=== PATIENT | female | born 1990 | race African-American/Black ===

== ENCOUNTER 2016-07-18 08:00 | Emergency (ER) | payer SELFPAY ==
[2016-07-18 08:35] LABS: ABSOLUTE EOSINOPHILS # (AUTO) 0.2 10^3/uL (0.0-0.6); ABSOLUTE LYMPHOCYTES (AUTO) 1.6 10^3/uL (0.5-4.7); ABSOLUTE MONOCYTES (AUTO) 0.8 10^3/uL (0.1-1.4); ABSOLUTE NEUT (AUTO) 6.6 10^3/uL (1.7-8.2); BASOPHILS % (AUTO) 0.3 % (0-2); EOSINOPHILS % (AUTO) 1.9 % (0-6); HEMATOCRIT 32.4 % (36.0-47.0); HEMOGLOBIN 10.9 g/dL (12.0-15.5); HGB HCT DIFFERENCE 0.3; LYMPHOCYTES % (AUTO) 17.3 % (13-45); MEAN CORPUSCULAR HEMOGLOBIN 29.1 pg (27.0-33.4); MEAN CORPUSCULAR HGB CONC 33.6 g/dL (32.0-36.0); MEAN CORPUSCULAR VOLUME 87 fl (80-97); MONOCYTES % (AUTO) 8.3 % (3-13); RED BLOOD COUNT 3.75 10^6/uL (3.72-5.28); RED CELL DISTRIBUTION WIDTH 16.2 % (11.5-14.0); SEGMENTED NEUTROPHILS % (AUTO) 72.2 % (42-78); WHITE BLOOD COUNT 9.2 10^3/uL (4.0-10.5)
[2016-07-18 08:39] LABS: ALANINE AMINOTRANSFERASE 31 U/L (9-52); ALBUMIN 3.2 g/dL (3.5-5.0); ALKALINE PHOSPHATASE 63 U/L (38-126); ANION GAP 11 (5-19); ASPARTATE AMINO TRANSFERASE 17 U/L (14-36); BILIRUBIN,TOTAL 0.4 mg/dL (0.2-1.3); BLOOD UREA NITROGEN 10 mg/dL (7-20); CALCIUM 9.3 mg/dL (8.4-10.2); CARBON DIOXIDE 21 mmol/L (22-30); CHLORIDE 105 mmol/L (98-107); CREATININE RESULT 0.47 mg/dL (0.52-1.25); GLUCOSE 78 mg/dL (75-110); POTASSIUM 4.3 mmol/L (3.6-5.0); SODIUM 137.4 mmol/L (137-145); TOTAL PROTEIN 6.7 g/dL (6.3-8.2)
[2016-07-18] MEDS ORDERED: ACETAMINOPHEN 325 MG TABLET PO ONE (09:34)
[2016-07-18 09:53] LABS: APPEARANCE,URINE CLOUDY; BILIRUBIN,URINE NEGATIVE (NEGATIVE); GLUCOSE, URINE NEGATIVE (NEGATIVE); KETONES,URINE NEGATIVE (NEGATIVE); LEUKOCYTE ESTERASE,URINE LARGE (NEGATIVE); NITRITE,URINE NEGATIVE (NEGATIVE); PROTEIN,URINE 100 mg/dL (NEGATIVE); URINE SPECIFIC GRAVITY 1.019; UROBILINOGEN,URINE NEGATIVE mg/dL (<2.0)
[2016-07-18 11:39] VITALS: BP 97/57
--- NOTE | 2016-07-18 12:16 | ER Document Report ---
ED GI/ - General Chief Complaint: Abdominal Pain Stated Complaint: ABDOMINAL PAIN Mode of Arrival: Ambulatory Information source: Patient Notes: 26-year-old female presents to the emergency department complaining of intermittently persistent mid lower abdomen/suprapubic pain over the last 4 days. Patient reports associated dysuria and possible vaginal versus post-void bleeding. Reports pink tinge on toilet paper after urination. Denies bleeding without urination. Reports is approximately 13 weeks , LMP 04/18/16. SA1. States was seen in this emergency department 3 days ago but symptoms are persistent. Denies fever, vaginal discharge, nausea or vomiting, chest pain or shortness of breath. TRAVEL OUTSIDE OF THE [place] IN LAST 30 DAYS: No - HPI Timing/Duration: Intermittent, Persistent Quality of pain: Burning, Sharp Severity at maximum: Moderate Severity in ED: Mild, Moderate Pain Level: 3 Context: Vaginal bleeding (Compared to normal period): Spotting ABO type: 0 Rh factor: + OB ultrasound done: Yes vitamins taken: Yes Similar symptoms previously: Yes Recently seen / treated by doctor: Yes - Related Data Allergies/Adverse Reactions: No Known Allergies Allergy (Verified 05/27/16 18:20) Past Medical History - General Information source: Patient, Emergency Med Personnel - Social History Smoking Status: Never Smoker Frequency of alcohol use: None Drug Abuse: None Lives with: Family Family History: Reviewed & Not Pertinent Patient has suicidal ideation: No Patient has homicidal ideation: No - Medical History Medical History: Negative Pulmonary Medical History: Denies: Hx Asthma Past Surgical History: Reports: Hx Section - Immunizations Immunizations up to date: Yes Hx Diphtheria, Pertussis, Tetanus Vaccination: Yes Review of Systems - Review of Systems Constitutional: No symptoms reported EENT: No symptoms reported Cardiovascular: No symptoms reported Respiratory: No symptoms reported Gastrointestinal: No symptoms reported Genitourinary: See HPI Female Genitourinary: See HPI Musculoskeletal: No symptoms reported Skin: No symptoms reported Hematologic/Lymphatic: No symptoms reported Neurological/Psychological: No symptoms reported -: Yes All other systems reviewed and negative Physical Exam - Vital signs Vitals: Temp Pulse Resp BP Pulse Ox 99.4 F 93 16 113/80 100 07/18/16 08:08 07/18/16 08:08 07/18/16 08:08 07/18/16 08:08 07/18/16 08:08 Interpretation: Normal - General General appearance: Appears well, Alert In distress: None - HEENT Head: Normocephalic, Atraumatic Eyes: Normal Pupils: PERRL - Respiratory Respiratory status: No respiratory distress Chest status: Nontender Breath sounds: Normal Chest palpation: Normal - Cardiovascular Rhythm: Regular Heart sounds: Normal auscultation Murmur: No Pulses: Normal: Radial, Posterior tibial, Dorsalis pedis Normal capillary refill: Yes - Abdominal Inspection: Normal Distension: No distension Bowel sounds: Normal Tenderness: Tender - Mild tenderness with palpation to mid lower abdomen/ suprapubic area.. No: Nontender, McBurney's point, Flor's sign, Guarding, Rebound, Other Organomegaly: No organomegaly - Genitourinary Notes: Deferred per patient - Back Back: Normal, Nontender. No: Tender, Deformity/step-off, CVA tenderness, Vertebra tenderness, Scars, Scoliosis, Wounds, Other - Extremities General upper extremity: Normal inspection, Nontender, Normal color, Normal ROM , Normal strength, Normal temperature. No: Tender, Edema General lower extremity: Normal inspection, Nontender, Normal color, Normal ROM , Normal strength, Normal temperature, Normal weight bearing. No: Tender, Edema , Bobby's sign - Neurological Neuro grossly intact: Yes Cognition: Normal Orientation: AAOx4 [place] Coma Scale Eye Opening: Spontaneous Carri Coma Scale Verbal: Oriented [place] Coma Scale Motor: Obeys Commands Carri Coma Scale Total: 15 Speech: Normal Motor strength normal: LUE, RUE, LLE, RLE Sensory: Normal - Psychological Associated symptoms: Normal affect, Normal mood - Skin Skin Temperature: Warm Skin Moisture: Dry Skin Color: Normal Skin Turgor: Elastic Course - Re-evaluation Re-evalutation: 07/18/16 12:17 Patient hemodynamically stable, in no distress, afebrile, nontoxic, and appears well-hydrated. UA suggestive of UTI, urine culture obtained. Ultrasound unremarkable. Quantitative b-HCG slight decreased. Discussed patient presentation and findings with HUMAN RESOURCES DESIGNATE on-call who recommends treatment for UTI and routine follow-up in [facility] clinic. Home care, follow-up, and ED return precautions discussed with patient who verbalized understanding and agrees with plan. - Vital Signs Vital signs: Temp Pulse Resp BP Pulse Ox 98.6 F 74 18 97/57 L 100 07/18/16 11:35 07/18/16 11:35 07/18/16 11:35 07/18/16 11:35 07/18/16 11:35 - Laboratory Result Diagrams: 07/18/16 08:20 07/18/16 08:20 Laboratory results interpreted by me: 07/18/16 07/18/16 07/18/16 08:20 08:20 09:30 Hgb 10.9 L Hct 32.4 L RDW 16.2 H Carbon Dioxide 21 L Creatinine 0.47 L Albumin 3.2 L Beta HCG, Quant 17305.00 H Urine Protein 100 H Urine Blood MODERATE H Ur Leukocyte Esterase LARGE H - Diagnostic Test Radiology reviewed: Image reviewed, Reports reviewed Discharge - Discharge Clinical Impression: UTI in Condition: Stable Disposition: HOME, SELF-CARE Instructions: Urinary Tract Infection ([facility]), Cephalexin ([facility]), Urinary Anesthetic Agent ([facility]), Acetaminophen, Abdominal Pain ([facility]) Additional Instructions: Your ultrasound today not show any abnormal findings. A culture of your urine was obtained. If bacterial growth is noted that requires a change in your prescribed antibiotic regimen, you will be contacted within 2 days with instructions on treatment. Drink plenty of fluids at least 2 -3 liters of water per day. Follow-up with your primary care provider and HUMAN RESOURCES DESIGNATE this week. Return to the emergency department for any worsening symptoms or concerns. Prescriptions: Cephalexin Monohydrate [Keflex 500 mg Capsule] 500 mg PO Q6H 7 Days Phenazopyridine HCl [Pyridium 200 mg Tablet] 200 mg PO TIDP PRN #15 tablet PRN Reason: Referrals: [facility] [Provider Group] - Follow up tomorrow
== END 2016-07-18 12:35 | disposition home or self-care (01) ==
LOC: ER 08:00
DX: O23.41 Unspecified infection of urinary tract in pregnancy, first trimester (principal); N39.0 Urinary tract infection, site not specified; R10.30 Lower abdominal pain, unspecified; Z3A.13 13 weeks gestation of pregnancy
CPT/HCPCS: 36415; 76801; 80053; 81001; 84702; 85025; 87086; 87088; 87186; 99284

== ENCOUNTER 2016-10-17 21:53 | Outpatient (CLI) | payer MEDICAID ==
[2016-10-17 22:44] LABS: APPEARANCE,URINE SLIGHTLY-CLOUDY; BILIRUBIN,URINE NEGATIVE (NEGATIVE); GLUCOSE, URINE NEGATIVE (NEGATIVE); KETONES,URINE TRACE mg/dL (NEGATIVE); LEUKOCYTE ESTERASE,URINE SMALL (NEGATIVE); NITRITE,URINE NEGATIVE (NEGATIVE); PROTEIN,URINE 100 mg/dL (NEGATIVE); URINE SPECIFIC GRAVITY 1.024; UROBILINOGEN,URINE NEGATIVE mg/dL (<2.0)
[2016-10-17 22:59] LABS: URINE BARBITURATES SCREEN NEGATIVE; URINE METHADONE SCREEN NEGATIVE; URINE OPIATES LOW NEGATIVE; URINE PHENCYCLIDINE SCREEN NEGATIVE
== END 2016-10-17 23:10 | disposition home or self-care (01) ==
LOC: LC 21:53
PROVIDERS: ATTEND Student in an Organized Health Care Education/Training Program
PROC: 4A1HXCZ Monitoring of Products of Conception, Cardiac Rate, External Approach (ICD-10-PCS; principal; 2016-10-17)
DX: O47.02 False labor before 37 completed weeks of gestation, second trimester (principal); Z3A.26 26 weeks gestation of pregnancy
CPT/HCPCS: 76815; 80307; 81001; 82731; 87081

== ENCOUNTER 2016-12-24 15:22 | Outpatient (CLI) | payer MEDICAID ==
[2016-12-24] MEDS ORDERED: RINGERS SOLUTION,LACTATED 1,000 ML IV PRN (16:02)
[2016-12-24] MEDS ORDERED: HYDROXYZINE PAMOATE 50 MG CAPSULE ONE (17:03)
[2016-12-24] MEDS ORDERED: HYDROXYZINE PAMOATE 50 MG CAPSULE PO ONE (17:30)
== END 2016-12-24 17:17 | disposition home or self-care (01) ==
LOC: LC 15:22
PROVIDERS: ATTEND Obstetrics & Gynecology
PROC: 4A1HXCZ Monitoring of Products of Conception, Cardiac Rate, External Approach (ICD-10-PCS; principal; 2016-12-24)
DX: O26.893 Other specified pregnancy related conditions, third trimester (principal); R10.9 Unspecified abdominal pain; Z3A.35 35 weeks gestation of pregnancy
CPT/HCPCS: 59025; J3490

== ENCOUNTER 2017-01-19 05:18 | Inpatient (IN) | payer MEDICAID ==
[2017-01-18 12:09] LABS: ABSOLUTE EOSINOPHILS # (AUTO) 0.1 10^3/uL (0.0-0.6); ABSOLUTE LYMPHOCYTES (AUTO) 1.8 10^3/uL (0.5-4.7); ABSOLUTE MONOCYTES (AUTO) 0.6 10^3/uL (0.1-1.4); ABSOLUTE NEUT (AUTO) 4.7 10^3/uL (1.7-8.2); BASOPHILS % (AUTO) 0.4 % (0-2); EOSINOPHILS % (AUTO) 1.2 % (0-6); HEMATOCRIT 29.2 % (36.0-47.0); HEMOGLOBIN 9.4 g/dL (12.0-15.5); LYMPHOCYTES % (AUTO) 24.9 % (13-45); MEAN CORPUSCULAR HEMOGLOBIN 26.2 pg (27.0-33.4); MEAN CORPUSCULAR VOLUME 82 fl (80-97); MONOCYTES % (AUTO) 8.1 % (3-13); RED BLOOD COUNT 3.57 10^6/uL (3.72-5.28); RED CELL DISTRIBUTION WIDTH 16.1 % (11.5-14.0); SEGMENTED NEUTROPHILS % (AUTO) 65.4 % (42-78); WHITE BLOOD COUNT 7.1 10^3/uL (4.0-10.5)
[2017-01-18 12:20] LABS: APPEARANCE,URINE SLIGHTLY-CLOUDY; BILIRUBIN,URINE NEGATIVE (NEGATIVE); GLUCOSE, URINE NEGATIVE (NEGATIVE); KETONES,URINE TRACE mg/dL (NEGATIVE); LEUKOCYTE ESTERASE,URINE NEGATIVE (NEGATIVE); NITRITE,URINE NEGATIVE (NEGATIVE); PROTEIN,URINE 30 mg/dL (NEGATIVE); URINE SPECIFIC GRAVITY 1.029; UROBILINOGEN,URINE NEGATIVE mg/dL (<2.0)
[2017-01-18 12:29] LABS: URINE BARBITURATES SCREEN NEGATIVE; URINE METHADONE SCREEN NEGATIVE; URINE OPIATES LOW NEGATIVE; URINE PHENCYCLIDINE SCREEN NEGATIVE
[~2017-01-19 05:18] MED LIST: CEFAZOLIN 2 GM/D5W RTU 2 GM/50 ML RTUPB IV PRN; LACTATED RINGERS 1000 ML IV PRN; LIDOCAINE 0.5% INJ-PF (5 MG/ML) 50 ML SDV SUBCUT PRN; RINGERS SOLUTION,LACTATED 1,500 ML IV PRN
--- NOTE | 2017-01-19 07:35 | Non Stress Test Report ---
Non Stress Test Datetime Report Generated by CPN: 01/19/2017 07:35 DEMOGRAPHIC EGA NST: 35.2 INDICATION Indication for Study: Ordered by Provider MONITORING Monitor Explained: Monitor Explained; Test Explained; Patient Verbalized Understanding Time on Monitor: 12/24/2016 15:44 Time off Monitor: 12/24/2016 16:53 NST Duration: 69 NST INTERVENTIONS NST Interventions: None Physician Notified NST: Dr Aldrich BABY A: [id number] BABY A Movement : Present Contraction Frequency : irregular FHR Baseline : 145 Accelerations : 15X15 Accelerations : 15X15 Decelerations : None Variability : Moderate 6-25bpm NST Review: Meets Criteria for Reactive NST NST Review and Verified By : Magda Abbasi RN NST Results: Reactive NST REPORT Report Trigger: Send Report
[2017-01-19] MEDS ORDERED: MIDAZOLAM 2 MG/2 ML INJ ONE ×2 (07:56→09:17)
[2017-01-19] MEDS ORDERED: FENTANYL CITRATE INJ/PF 100 MCG/2 ML AMPUL ONE (07:57)
[2017-01-19] MEDS ORDERED: EPHEDRINE SULFATE INJ 50 MG/1 ML AMPULE ONE (07:57)
[2017-01-19] MEDS ORDERED: OXYTOCIN/NORMAL SALINE 20 UNIT/1,000 ML RTUINJ ONE (07:58)
[2017-01-19] MEDS ORDERED: ACETAMINOPHEN 100 ML IV ONE (07:58)
[2017-01-19] MEDS ORDERED: OXYCODONE-ACETAMINOPHEN 5-325 MG TABLET PO PRN ×3 (08:17→10:21)
[2017-01-19] MEDS ORDERED: PROMETHAZINE HCL INJ 25 MG/1 ML VIAL IV PRN ×3 (08:17→10:21)
[2017-01-19] MEDS ORDERED: FENTANYL CITRATE INJ/PF 100 MCG/2 ML AMPUL IV PRN ×3 (08:17)
[2017-01-19] MEDS ORDERED: DIPHENHYDRAMINE HCL 50 MG/ML VIAL IV PRN (08:17)
[2017-01-19] MEDS ORDERED: MEPERIDINE HCL/PF INJ 25 MG/1 ML DISP.SYRIN IV PRN (08:17)
[2017-01-19] MEDS ORDERED: MORPHINE SULFATE 10 MG/ML INJ IV PRN (08:17)
[2017-01-19] MEDS ORDERED: KETAMINE HCL INJ 500 MG/10 ML VIAL ONE (09:16)
[2017-01-19] MEDS ORDERED: RINGERS SOLUTION,LACTATED 1,000 ML IV PRN (10:21)
[2017-01-19] MEDS ORDERED: MEASLES,MUMPS&RUBELLA VACC/PF 0.5 ML VIAL SUBCUT PRN (10:21)
[2017-01-19] MEDS ORDERED: SIMETHICONE 80 MG TAB.CHEW PO PRN (10:21)
[2017-01-19] MEDS ORDERED: OXYTOCIN/NORMAL SALINE 1,000 ML IV PRN (10:21)
[2017-01-19] MEDS ORDERED: ACETAMINOPHEN 325 MG TABLET PO PRN (10:21)
[2017-01-19] MEDS ORDERED: HYDROMORPHONE HCL INJ/PF 2 MG/ML AMPULE IV PRN (10:21)
[2017-01-19] MEDS ORDERED: ACETAMINOPHEN 100 ML IV PRN (10:21)
[2017-01-19] MEDS ORDERED: DIPH/PERTUSS(ACELL)/TETANUS VAC/PF 0.5 ML SYR (>=10YO) IM PRN (10:21)
[2017-01-19] MEDS ORDERED: MORPHINE SULFATE 10 MG/ML INJ ONE (10:25)
--- NOTE | 2017-01-19 10:28 | Operative Report ---
Operative Report DATE OF SURGERY: 01/19/17 PREOPERATIVE DIAGNOSIS: Scheduled repeat to prevent uterine rupture POSTOPERATIVE DIAGNOSIS: Same OPERATION: Repeat via low transverse uterine incision SURGEON: ELANA MARTIN ANESTHESIA: GA TISSUE REMOVED OR ALTERED: Placenta COMPLICATIONS: None ESTIMATED BLOOD LOSS: 250 cc INTRAOPERATIVE FINDINGS: Normal uterus tubes and ovaries viable female with Apgars of 6 and 9 PROCEDURE: Patient was taken to the OR and placed in supine position after her spinal anesthesia. She was prepared and draped in sterile fashion. Pruitt catheter was placed. The spinal was not working well in general anesthesia was induced. A Low transverse incision was made and carried down the level of the fascia. The fascial incision was made with knife and extended bilaterally with curved Chatman scissors. The fascia was off the rectus muscles using sharp and blunt dissection. The rectus muscles are in the midline. The peritoneum was entered without incident. Bladder blade was placed in uterine segment was identified. A low transverse incision was made creating a bladder flap. Bladder blade was placed low transverse uterine incision was made with the c-safe knife and extended with fingertips. The baby was delivered with some fundal pressure. The assistance of the Kiwi vacuum was used with one pull with pressure in the green and no pop off. Mouth and nose were suctioned free. The cord is doubly clamped and cut. Baby is passed off to the customer service assistant in attendance. The placenta was manually extracted with trailing membranes. The uterus was externalized wrapped in a moist lap sponge. Uterine contents wiped free. Uterus was closed with a running locking layer of 0 chromic suture using the second layer to imbricate the first completing a double layer closure of the uterus. The serosa was closed with a running 2-0 chromic stitch. The pelvis was irrigated and suctioned free of fluid the uterus was replaced in the abdomen. The bladder was intact. The abdominal wall peritoneum was closed with running 2-0 chromic stitch. Fascia was closed with a running 0 Vicryl in 2 segments. Tatiana's layer was brought together with 0 plain gut stitch and the skin was closed with running subcuticular 4-0 undyed Vicryl stitch. The wound was dressed mother and baby did well.
[2017-01-19] MEDS ORDERED: KETOROLAC TROMETHAMINE INJ/PF 30 MG/1 ML SDV ONE (10:51)
[2017-01-19] MEDS ORDERED: KETOROLAC TROMETHAMINE INJ/PF 30 MG/1 ML SDV IV ONE (11:00)
[2017-01-19] MEDS ORDERED: SUCCINYLCHOLINE CHLORIDE INJ 200 MG/10 ML VIAL ONE (13:18)
[2017-01-19] MEDS ORDERED: LIDOCAINE 2% INJ-PF (20 MG/ML) 10 ML AMPUL ONE (13:18)
[2017-01-19] MEDS ORDERED: ONDANSETRON HCL INJ/PF 4 MG/2 ML SDV ONE (13:18)
[2017-01-19] MEDS: KETOROLAC TROMETHAMINE INJ/PF 30 MG/1 ML SDV IV SCH (18:26)
[2017-01-19] MEDS: DOCUSATE SODIUM 100 MG CAPSULE PO SCH (18:27)
[2017-01-19] MEDS: OXYCODONE-ACETAMINOPHEN 5-325 MG TABLET PO PRN (21:30)
[2017-01-20] MEDS: KETOROLAC TROMETHAMINE INJ/PF 30 MG/1 ML SDV IV SCH (02:06)
[2017-01-20] MEDS: OXYCODONE-ACETAMINOPHEN 5-325 MG TABLET PO PRN ×3 (02:07→15:30)
[2017-01-20] MEDS: IBUPROFEN 800 MG TABLET PO SCH ×4 (05:50→23:01)
[2017-01-20 06:54] LABS: HEMATOCRIT 24.1 % (36.0-47.0); HGB HCT DIFFERENCE -1.3; MEAN CORPUSCULAR HGB CONC 31.6 g/dL (32.0-36.0); MEAN CORPUSCULAR VOLUME 82 fl (80-97); RED BLOOD COUNT 2.93 10^6/uL (3.72-5.28); RED CELL DISTRIBUTION WIDTH 16.4 % (11.5-14.0)
[2017-01-20 06:56] LABS: HEMOGLOBIN 7.6 g/dL (12.0-15.5)
--- NOTE | 2017-01-20 08:22 | PDOC PROGRESS REPORT ---
Subjective-OB Subjective: Post Delivery Day: 26 year old. Denies any needs at this time Physical Exam (OB) Vital Signs: Temp Pulse Resp BP Pulse Ox 97.9 F 68 16 107/64 100 01/20/17 07:31 01/20/17 07:31 01/20/17 07:31 01/20/17 07:31 01/20/17 07:31 Intake & Output 01/19/17 01/20/17 01/21/17 06:59 06:59 06:59 Intake Total 2440 Output Total 1800 Balance 640 Weight 82.1 kg - Dressing Removed: No - honeycomb dressing Incision: Dressing - Lochia Lochia Amount: Small 10-25 ml Lochia Color: Rubra/Red - Abdomen Description: Tender, Soft Hernia Present: No Bowel Sounds: Normoactive Flatus Presence: Present Stool: No Fundal Description: Firm, Midline Fundal Height: u/u - u/2 Objective-Diagnostic Laboratory: 01/20/17 05:41 01/20/17 05:41 WBC 10.0 RBC 2.93 L Hgb 7.6 L Hct 24.1 L MCV 82 MCH 26.0 L MCHC 31.6 L RDW 16.4 H Plt Count 254
[2017-01-20] MEDS: DOCUSATE SODIUM 100 MG CAPSULE PO SCH ×2 (09:22→17:39)
[2017-01-20] MEDS: PRENATAL VITAMIN W-O CA NO5/FE FUMARATE/FA CAPSULE PO SCH (09:22)
[2017-01-21] MEDS: OXYCODONE-ACETAMINOPHEN 5-325 MG TABLET PO PRN (04:00)
[2017-01-21] MEDS: IBUPROFEN 800 MG TABLET PO SCH ×2 (06:50→11:17)
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
[2017-01-21] MEDS: PRENATAL VITAMIN W-O CA NO5/FE FUMARATE/FA CAPSULE PO SCH (09:47)
[2017-01-21] MEDS: DOCUSATE SODIUM 100 MG CAPSULE PO SCH (09:47)
[2017-01-21 10:00] VITALS: BP 114/60
--- NOTE | 2017-02-03 13:52 | PDOC DELIVERY SUMMARY ---
Delivery Summary - Maternal Hx : V Hx # Term Pregnancies: 4 Hx # Pregnancies: 0 Hx Total # of Abortions (Sponateous & Elective): 1 GUSTAVO: 01/26/17 Gestational Age: 39 Ruptured Membranes: AROM Time of Rupture: 09:32 Fluids: Clear - Delivery Presentation: Vertex Heart Rate Monitoring: Done Pre-Operatively Support Person Present: Yes - MOTHER, LERERNE, OUTSIDE ROOM Location: OR : Scheduled Placenta: Within Normal Limits Delivery of Placenta Date: 01/19/17 Delivery of Placenta Time: 09:34 - Medications Type of Anesthesia:: GA - Infant Assess and Care Baby 1 Female Delivery of Date: 01/19/17 Delivery of Time: 09:33 at 1 minute: 6 at 5 minutes: 9 Preprinted Number On Band: [id number] Infant Skin to Skin: No To Nursery At: 09:40 Mode of Transport: Bassinet Infant Delivery Weight: 2560 kg Infant Delivery Length: 18.5 in - Delivery Personnel Ball Machine Operator: SIL Perales RN: SAULO JAMES RN: RADAMES SCOTT RN: CORY YE MD: ELANA MARTIN
== END 2017-01-21 11:40 | disposition home or self-care (01) | DRG 765 ==
LOC: 2S 05:18
PROVIDERS: ADMIT Obstetrics & Gynecology; ATTEND Obstetrics & Gynecology
PROC: 10D00Z1 Extraction of Products of Conception, Low, Open Approach (ICD-10-PCS; principal; 2017-01-19 08:15)
DX: O34.211 Maternal care for low transverse scar from previous cesarean delivery (principal); O99.834 Other infection carrier state complicating childbirth; O24.420 Gestational diabetes mellitus in childbirth, diet controlled; O99.334 Smoking (tobacco) complicating childbirth; F17.210 Nicotine dependence, cigarettes, uncomplicated; Z3A.39 39 weeks gestation of pregnancy; Z37.0 Single live birth; Z22.8 Carrier of other infectious diseases
CPT/HCPCS: 1961; 36415; 59025; 80307; 81001; 82962; 85025; 85027; 86850; 86900; 86901; 94799; J0131; J0330; J0690; J1170; J1885; J2250; J2270; J2405; J2590; J3010; J3490; J7120

== ENCOUNTER 2018-03-25 12:42 | Inpatient (IN) | payer SELFPAY ==
[~2018-03-25 12:42] MED LIST changes: -CEFAZOLIN 2 GM/D5W RTU 2 GM/50 ML RTUPB IV PRN; +DEXAMETHASONE SOD PHOSPHATE INJ 4 MG/1 ML VIAL ONE; +GLYCOPYRROLATE 1 MG/5 ML SYRINGE ONE; -LACTATED RINGERS 1000 ML IV PRN; -LIDOCAINE 0.5% INJ-PF (5 MG/ML) 50 ML SDV SUBCUT PRN; +METOCLOPRAMIDE HCL INJ/PF 10 MG/2 ML SDV ONE; +NEOSTIGMINE METHYLSULFATE 10 MG/10 ML VIAL ONE; +ONDANSETRON HCL INJ/PF 4 MG/2 ML SDV ONE; +PHENYLEPHRINE HCL INJ/PF 10 MG/1 ML SDV ONE; -RINGERS SOLUTION,LACTATED 1,500 ML IV PRN; +ROCURONIUM BROMIDE INJ 50 MG/5 ML VIAL IV ONE; +SUCCINYLCHOLINE CHLORIDE INJ 200 MG/10 ML VIAL ONE
[2018-03-25] MEDS ORDERED: NORMAL SALINE 1000 ML 1,000 ML IV ONE ×2 (12:52→12:53)
--- NOTE | 2018-03-25 12:56 | ER Document Report ---
ED Medical Screen (RME) - General Chief Complaint: Abdominal Pain Stated Complaint: ABODMINAL PAIN Mode of Arrival: Ambulatory Information source: Patient Notes: -27-year-old female with no reported past medical history presents hypotensive with complaint of pelvic pain that started 1 day prior to arrival. I have greeted and performed a rapid initial assessment of this patient. A comprehensive ED assessment and evaluation of the patient, analysis of test results and completion of medical decision making process we will be contacted by additional ED providers. General; ill-appearing Respiratory; no respiratory distress Skin; no rash TRAVEL OUTSIDE OF THE [place] IN LAST 30 DAYS: No - Related Data Allergies/Adverse Reactions: No Known Allergies Allergy (Verified 03/25/18 12:42) Past Medical History - Past Medical History Cardiac Medical History: Denies: Hx Hypertension, Hx Pulmonary Embolism, Hx Heart Murmur Pulmonary Medical History: Denies: Hx Asthma, Hx Sleep Apnea, Hx Tuberculosis Neurological Medical History: Denies: Hx Seizures Endocrine Medical History: Denies: Hx Hyperthyroidism, Hx Hypothyroidism Renal/ Medical History: Denies: Hx Kidney Stones, Hx Ovarian Cysts, Hx Pelvic Inflammatory Disease Malignancy Medical History: Denies: Hx Breast Cancer, Hx Cervical Cancer, Hx Ovarian Cancer GI Medical History: Denies: Hx Gastroesophageal Reflux Disease, Hx Hiatal Hernia , Hx Ulcer Musculoskeltal Medical History: Denies Hx Fibromyalgia Psychiatric Medical History: Denies: Hx Bipolar Disorder, Hx Depression, Hx Post Traumatic Stress Disorder , Hx Schizophrenia Traumatic Medical History: Denies: Hx Fractures Infectious Medical History: Denies: Hx HIV Past Surgical History: Reports: Hx Section - Immunizations Immunizations up to date: Yes Hx Diphtheria, Pertussis, Tetanus Vaccination: Yes Physical Exam - Vital signs Vitals: Temp Pulse Resp BP Pulse Ox 99.2 F 82 16 68/32 L 100 03/25/18 12:46 03/25/18 12:46 03/25/18 12:46 03/25/18 12:46 03/25/18 12:46 Course - Vital Signs Vital signs: Temp Pulse Resp BP Pulse Ox 99.2 F 82 16 68/32 L 100 03/25/18 12:46 03/25/18 12:46 03/25/18 12:46 03/25/18 12:46 03/25/18 12:46 Doctor's Discharge - Discharge Referrals: VICKEY MONTENEGRO MD [Primary Care Provider] - Follow up as needed
[2018-03-25 13:43] LABS: INTERNATIONAL RATION (INR) 0.98; PROTHROMBIN TIME 13.5 SEC (11.4-15.4)
[2018-03-25 13:51] LABS: ALANINE AMINOTRANSFERASE 9 U/L (9-52); ALBUMIN 4.2 g/dL (3.5-5.0); ALKALINE PHOSPHATASE 60 U/L (38-126); ANION GAP 11 (5-19); ASPARTATE AMINO TRANSFERASE 32 U/L (14-36); BILIRUBIN,DIRECT 0.3 mg/dL (0.0-0.4); BILIRUBIN,TOTAL 0.6 mg/dL (0.2-1.3); BLOOD UREA NITROGEN 10 mg/dL (7-20); CALCIUM 8.9 mg/dL (8.4-10.2); CARBON DIOXIDE 21 mmol/L (22-30); CHLORIDE 107 mmol/L (98-107); GLUCOSE 109 mg/dL (75-110); POTASSIUM 3.6 mmol/L (3.6-5.0); SODIUM 139.2 mmol/L (137-145); TOTAL PROTEIN 8.1 g/dL (6.3-8.2)
--- NOTE | 2018-03-25 13:52 | ER Document Report ---
ED General - General Chief Complaint: Abdominal Pain Stated Complaint: ABODMINAL PAIN Time Seen by Provider: 03/25/18 13:46 Mode of Arrival: Ambulatory Information source: Patient Notes: This is a 27-year-old female, 4 para 4, was brought directly back from triage because of an acute abdominal pain. Her blood pressure was 68 systolic in triage. She states that she started having pain last night but it became severe today. Her last menstrual period was a month ago but it was not normal for her she only bled 2 days (normally she bleeds for). TRAVEL OUTSIDE OF THE [place] IN LAST 30 DAYS: No - HPI Onset: Just prior to arrival Onset/Duration: Sudden Quality of pain: Dull Severity: Severe Pain Level: 5 Associated symptoms: denies: Chest pain, Fever, Shortness of breath Exacerbated by: Denies Relieved by: Denies Similar symptoms previously: No Recently seen / treated by doctor: No - Related Data Allergies/Adverse Reactions: No Known Allergies Allergy (Verified 03/25/18 12:42) Past Medical History - General Information source: Patient - Social History Smoking Status: Never Smoker Cigarette use (# per day): No Chew tobacco use (# tins/day): No Frequency of alcohol use: Social Drug Abuse: None Lives with: Family Family History: Reviewed & Not Pertinent Patient has suicidal ideation: No Patient has homicidal ideation: No - Past Medical History Cardiac Medical History: Denies: Hx Hypertension, Hx Pulmonary Embolism, Hx Heart Murmur Pulmonary Medical History: Denies: Hx Asthma, Hx Sleep Apnea, Hx Tuberculosis Neurological Medical History: Denies: Hx Seizures Endocrine Medical History: Denies: Hx Hyperthyroidism, Hx Hypothyroidism Renal/ Medical History: Denies: Hx Kidney Stones, Hx Ovarian Cysts, Hx Peritoneal Dialysis, Hx Pelvic Inflammatory Disease Malignancy Medical History: Denies: Hx Breast Cancer, Hx Cervical Cancer, Hx Ovarian Cancer GI Medical History: Denies: Hx Gastroesophageal Reflux Disease, Hx Hiatal Hernia , Hx Ulcer Musculoskeletal Medical History: Denies Hx Fibromyalgia Psychiatric Medical History: Denies: Hx Bipolar Disorder, Hx Depression, Hx Post Traumatic Stress Disorder , Hx Schizophrenia Traumatic Medical History: Denies: Hx Fractures Infectious Medical History: Denies: Hx HIV Past Surgical History: Reports: Hx Section - Immunizations Immunizations up to date: Yes Hx Diphtheria, Pertussis, Tetanus Vaccination: Yes Review of Systems - Review of Systems Constitutional: denies: Chills, Fever EENT: No symptoms reported Cardiovascular: denies: Chest pain, Palpitations, Heart racing Respiratory: No symptoms reported Gastrointestinal: See HPI Genitourinary: No symptoms reported Female Genitourinary: No symptoms reported Musculoskeletal: No symptoms reported Skin: No symptoms reported Hematologic/Lymphatic: No symptoms reported Neurological/Psychological: No symptoms reported Physical Exam - Vital signs Vitals: Temp Pulse Resp BP Pulse Ox 99.2 F 82 16 68/32 L 100 03/25/18 12:46 03/25/18 12:46 03/25/18 12:46 03/25/18 12:46 03/25/18 12:46 Notes: Physical exam: GENERAL: The 27-year-old female, alert and oriented 3, acute abdominal pain. Blood pressure 111/81, pulse 95, O2 sat 100%, respiratory rate 17 HEAD: Atraumatic, normocephalic. EYES: Pupils equal round and reactive to light, extraocular movements intact, sclera anicteric, conjunctiva are normal. ENT: TMs normal, nares patent, oropharynx clear without exudates. Moist mucous membranes. NECK: Normal range of motion, supple without obvious mass or JVD. LUNGS: Breath sounds clear to auscultation bilaterally and equal. No wheezes rales or rhonchi. HEART: Regular rate and rhythm without murmurs, rubs or gallops. ABDOMEN: Soft, acutely tender abdomen with guarding, tenderness appears most in the suprapubic region. EXTREMITIES: Normal range of motion, no pitting or edema. No clubbing or cyanosis. NEUROLOGICAL: Cranial nerves II through XII grossly intact. Normal speech, moving all extremities. PSYCH: Normal mood, normal affect. SKIN: Warm, Dry, normal turgor, no rashes or lesions noted. Bedside ultrasound: Positive free fluid in Morison's pouch, above the spleen and then the left flank. Course - Re-evaluation Re-evalutation: 03/25/18 13:50 27-year-old female presenting with acute abdominal pain. She was hypertensive in triage. She is diffusely tender (mostly in the lower abdomen). Bedside ultrasound does show free fluid in Morison's pouch in the left flank. Her test (qualitative) is positive. She is getting IV fluids. We will working on a second line. She is currently n.p.o. Will type and cross. Discussed case with Dr. Rolle who is coming in to see patient. Discussed ultrasound findings with the radiologist: The concern is a right ruptured ectopic. Dr. Rolle has seen the patient will take the patient to the OR. 03/25/18 18:41 03/25/18 18:42 - Vital Signs Vital signs: Temp Pulse Resp BP Pulse Ox 99.2 F 82 24 H 121/71 99 03/25/18 12:46 03/25/18 12:46 03/25/18 16:01 03/25/18 16:01 03/25/18 16:01 - Laboratory Result Diagrams: 03/25/18 13:05 03/25/18 13:05 Laboratory results interpreted by me: 03/25/18 03/25/18 03/25/18 12:58 13:05 13:05 WBC 12.7 H Hgb 10.7 L Hct 33.0 L RDW 16.7 H Absolute Neutrophils 8.9 H VBG pH Carbon Dioxide 21 L POC Glucose 132 H Serum HCG, Qual Beta HCG, Quant 2305.70 H Urine Protein Urine Urobilinogen Urine HCG, Qual Crossmatch 03/25/18 03/25/18 03/25/18 13:40 14:24 15:00 WBC Hgb Hct RDW Absolute Neutrophils VBG pH 7.28 L Carbon Dioxide POC Glucose Serum HCG, Qual POSITIVE H Beta HCG, Quant Urine Protein Urine Urobilinogen Urine HCG, Qual Crossmatch See Detail 03/25/18 15:29 WBC Hgb Hct RDW Absolute Neutrophils VBG pH Carbon Dioxide POC Glucose Serum HCG, Qual Beta HCG, Quant Urine Protein 30 H Urine Urobilinogen 2.0 H Urine HCG, Qual POSITIVE H Crossmatch - EKG Interpretation by Me Rate: Normal Rhythm: NSR - JG shows normal sinus rhythm with a ventricular rate of 89, no acute ST-T wave changes Critical Care Note - Critical Care Note Total time excluding time spent on procedures (mins): 60 Discharge - Discharge Clinical Impression: Ruptured ectopic Condition: Stable Disposition: ADMITTED OBSERVATION Admitting Provider: [facility] - Dr Rolle Unit Admitted: OR
[2018-03-25 13:53] LABS: ABSOLUTE BASOPHILS # (AUTO) 0.1 10^3/uL (0.0-0.2); ABSOLUTE EOSINOPHILS # (AUTO) 0.2 10^3/uL (0.0-0.6); ABSOLUTE MONOCYTES (AUTO) 0.7 10^3/uL (0.1-1.4); ABSOLUTE NEUT (AUTO) 8.9 10^3/uL (1.7-8.2); BASOPHILS % (AUTO) 0.4 % (0-2); EOSINOPHILS % (AUTO) 1.3 % (0-6); HEMOGLOBIN 10.7 g/dL (12.0-15.5); LYMPHOCYTES % (AUTO) 23.3 % (13-45); MEAN CORPUSCULAR HEMOGLOBIN 27.7 pg (27.0-33.4); MEAN CORPUSCULAR HGB CONC 32.4 g/dL (32.0-36.0); MEAN CORPUSCULAR VOLUME 85 fl (80-97); MONOCYTES % (AUTO) 5.1 % (3-13); PLATELET COUNT 403 10^3/uL (150-450); RED BLOOD COUNT 3.87 10^6/uL (3.72-5.28); RED CELL DISTRIBUTION WIDTH 16.7 % (11.5-14.0); SEGMENTED NEUTROPHILS % (AUTO) 69.9 % (42-78); TOTAL CELLS COUNTED % (AUTO) 100 %; WHITE BLOOD COUNT 12.7 10^3/uL (4.0-10.5)
[2018-03-25] MEDS ORDERED: ONDANSETRON HCL INJ/PF 4 MG/2 ML SDV IV ONE (13:53)
[2018-03-25] MEDS ORDERED: MORPHINE SULFATE 10 MG/ML INJ IV ONE (13:58)
--- NOTE | 2018-03-25 15:13 | RADIOLOGY REPORT (SQ) ---
EXAM DESCRIPTION: U/S OB TRANSVAGINAL W/O DOP COMPLETED DATE/TIME: 03/25/2018 2:46 pm REASON FOR STUDY: abd pain COMPARISON: None. TECHNIQUE: Transvaginal static and realtime grayscale images acquired of the pelvis. Additional jake cted spectral and color Doppler images recorded. All images stored on PACs. C,305 LIMITATIONS: None. FINDINGS: No intrauterine . There is a thick-walled hypoechoic lesion with internal cystic component in the right adnexa measuring about 4.1 x 4.6 x 2.4 cm adjacent to the right ovary. The l eft ovary is not visualized. There is moderate free fluid in the right adnexa with internal echoes. IMPRESSION: No intrauterine . Suspect ruptured ectopic . COMMENT: Findings were discussed with Dr. Nagy at 1505 hours. TECHNICAL DOCUMENTATION: JOB ID: [id number] [employer]- All Rights Reserved Reading location - IP/workstation name: [email or web address]
[2018-03-25 15:18] LABS: VENOUS BLOOD BASE EXCESS -5.3 mmol/L; VENOUS BLOOD HCO3 21.3 mmol/L (20-32); VENOUS BLOOD PCO2 46.7 mmHg (35-63); VENOUS BLOOD PH 7.28 (7.30-7.42)
[2018-03-25] MEDS ORDERED: BUPIVACAINE HCL 0.5 % INJ/PF 30 ML SDV ONE (16:02)
[2018-03-25 16:03] LABS: APPEARANCE,URINE SLIGHTLY-CLOUDY; BILIRUBIN,URINE NEGATIVE (NEGATIVE); COLOR,URINE YELLOW; GLUCOSE, URINE NEGATIVE (NEGATIVE); KETONES,URINE NEGATIVE (NEGATIVE); LEUKOCYTE ESTERASE,URINE NEGATIVE (NEGATIVE); NITRITE,URINE NEGATIVE (NEGATIVE); PROTEIN,URINE 30 mg/dL (NEGATIVE); URINE SPECIFIC GRAVITY 1.029
[2018-03-25] MEDS ORDERED: LIDOCAINE 2% INJ-PF (100 MG/5 ML) SYRINGE ONE (16:05)
[2018-03-25] MEDS ORDERED: MIDAZOLAM 2 MG/2 ML INJ ONE (16:05)
[2018-03-25] MEDS ORDERED: HYDROMORPHONE HCL INJ/PF 2 MG/ML AMPULE ONE (16:05)
[2018-03-25] MEDS ORDERED: FENTANYL CITRATE INJ/PF 100 MCG/2 ML AMPUL ONE (16:05)
[2018-03-25] MEDS ORDERED: PROPOFOL INJ 200 MG/20 ML VIAL IV ONE (16:06)
[2018-03-25] MEDS ORDERED: ACETAMINOPHEN 1,000 MG/100 ML RTUPB IV ONE (16:06)
[2018-03-25] MEDS ORDERED: FAMOTIDINE INJ/PF 20 MG/2 ML SDV IV PRN (16:15)
--- NOTE | 2018-03-25 16:25 | EKG REPORT ---
SEVERITY:- BORDERLINE ECG - SINUS RHYTHM BORDERLINE T ABNORMALITIES, DIFFUSE LEADS : Confirmed by: Talat Osman MD 25-Mar-2018 16:24:11
[2018-03-25] MEDS ORDERED: NORMAL SALINE 250 ML IV PRN (17:16)
[2018-03-25] MEDS ORDERED: PROMETHAZINE HCL INJ 25 MG/1 ML VIAL IV PRN ×2 (17:47)
[2018-03-25] MEDS ORDERED: MEPERIDINE HCL/PF INJ 25 MG/1 ML DISP.SYRIN IV PRN (17:47)
[2018-03-25] MEDS ORDERED: FENTANYL CITRATE INJ/PF 100 MCG/2 ML AMPUL IV PRN ×3 (17:47)
[2018-03-25] MEDS ORDERED: DIPHENHYDRAMINE HCL 50 MG/ML VIAL IV PRN (17:47)
[2018-03-25] MEDS ORDERED: ONDANSETRON HCL INJ/PF 4 MG/2 ML SDV IV PRN (17:47)
[2018-03-25] MEDS ORDERED: RINGERS SOLUTION,LACTATED 1,000 ML IV PRN (19:32)
[2018-03-25] MEDS ORDERED: MORPHINE SULFATE 10 MG/ML INJ IV PRN (19:32)
[2018-03-25] MEDS ORDERED: IBUPROFEN 800 MG TABLET PO PRN (19:33)
--- NOTE | 2018-03-25 19:35 | OPERATIVE REPORT E ---
Operative Report NAME: EVGENY LUJAN : 1990 AGE: 27Y DATE OF SURGERY: 03/25/2018 ROOM: ED03 PREOPERATIVE DIAGNOSIS: ECTOPIC . POSTOPERATIVE DIAGNOSIS: ECTOPIC . OPERATION: Diagnostic laparoscopy with lysis of adhesions. Evacuation of hemoperitoneum. Right salpingectomy. SURGEON: MIGUEL HINES M.D. JUVEN[address] COURT LIAISON: assistant golf course superintendent student. UPSETTER HELPER: Jennifer Odom. ANESTHESIA: Dr. Mahoney, general. FINDINGS: Approximately 750 mL of blood in the peritoneum. Right fallopian tube ectopic, very close to the isthmus of the fallopian tube. Left fallopian tube was intact and normal in appearance. There were some adhesions of the omentum to the anterior abdominal wall, which had to be taken down for visualization purposes. ESTIMATED BLOOD LOSS: Approximately 750 mL. SPECIMENS REMOVED: Right fallopian tube with ectopic . PROCEDURE: The patient was taken to the operating room, prepared and draped in normal sterile fashion in the dorsal lithotomy position under sterile conditions. A sponge stick was placed into the vagina for uterine manipulation. Gloves were changed and attention was turned to the upper portion of the case, where umbilical skin incision was made through which a Veress needle was introduced and peritoneal cavity placement was confirmed with free flow sterile saline through the needle, and opening intraperitoneal pressure of less than 6 mmHg. The abdomen was then insufflated with approximately 2 liters of CO2 gas, and the Veress needle was removed and a 5 mm port replaced it. The camera was introduced with the above findings noted. The patient was placed in Trendelenburg and under direct visualization two 5 mm ports were placed approximately 10 cm on either side of the umbilicus. The atraumatic grasper was introduced and the bowel was swept away. The suction anesthesia director was then introduced and I suction irrigated as much of the clotted blood as possible. Pictures were taken of this process and it was quickly realized I was going to need to take down the omental adhesions, and this was done bluntly with atraumatic grasper. I then continued with suction evacuation of the hemoperitoneum until visualization was improved and the right fallopian tube knuckle was noted. The rest of the fallopian tube was then elevated using atraumatic grasper and it was found that the ectopic was indeed in this fallopian tube, and was dangerously close to the cornua of the uterus. I continued with suction evacuation in order to improve visualization. Once I was able to ascertain that even though it was quite close to the cornua and not involving the cornua, I then introduced a LigaSure and beginning at the fimbriated end, transected the mesosalpinx until I reached just underneath the ectopic. At this point, I began at the fundus of the uterus at the isthmus portion and following along the ridges of the ectopic, I continued to transect using the LigaSure until the specimen was completely freed. The specimen was then placed into the anterior cul-de-sac and the rest of the peritoneal cavity was copiously irrigated and suctioned. We reevaluated the surgical site multiple times and found it to be hemostatic, as we continued to suction the blood out of the peritoneum. We then removed the left port and widened this incision to accommodate a 10 mm port in order to introduce the EndoCatch bag, in which the specimen was then bagged without difficulty and removed through this 10 mm incision without difficulty, as the port was removed. The 10 mm port site was then closed with a mattress stitch of 0 Vicryl. The peritoneal cavity was reinspected and again found to be hemostatic. Remnants of the hemoperitoneum were evacuated as much as possible until it was felt that we had done the best we could, and we concluded the case. The 2 remaining *------* were removed under direct visualization. The skin was closed at all 3 sites using 4-0 Vicryl. The patient tolerated the procedure well. Sponge, lap, and needle counts were correct x2, and the patient was taken to the recovery room in stable condition. DICTATING PHYSICIAN: MIGUEL HINES M.D. [id number] PHY#: [id number] ID: [id number] JOB#: [id number] ACCT: [id number] cc:MIGUEL HINES M.D. >
[2018-03-25] MEDS: RINGERS SOLUTION,LACTATED 1,000 ML IV PRN (20:31)
[2018-03-25] MEDS: KETOROLAC TROMETHAMINE INJ/PF 30 MG/1 ML SDV IV SCH (21:55)
[2018-03-26] MEDS: RINGERS SOLUTION,LACTATED 1,000 ML IV PRN (05:00)
[2018-03-26] MEDS: KETOROLAC TROMETHAMINE INJ/PF 30 MG/1 ML SDV IV SCH ×2 (05:01→14:25)
[2018-03-26 05:47] LABS: ABSOLUTE MONOCYTES (AUTO) 0.3 10^3/uL (0.1-1.4); ABSOLUTE NEUT (AUTO) 8.2 10^3/uL (1.7-8.2); BASOPHILS % (AUTO) 0.3 % (0-2); EOSINOPHILS % (AUTO) 0.1 % (0-6); HEMATOCRIT 20.6 % (36.0-47.0); LYMPHOCYTES % (AUTO) 10.2 % (13-45); MEAN CORPUSCULAR HEMOGLOBIN 28.8 pg (27.0-33.4); MEAN CORPUSCULAR HGB CONC 33.6 g/dL (32.0-36.0); MEAN CORPUSCULAR VOLUME 86 fl (80-97); PLATELET COUNT 257 10^3/uL (150-450); RED BLOOD COUNT 2.39 10^6/uL (3.72-5.28); RED CELL DISTRIBUTION WIDTH 16.9 % (11.5-14.0); SEGMENTED NEUTROPHILS % (AUTO) 86.4 % (42-78); TOTAL CELLS COUNTED % (AUTO) 100 %; WHITE BLOOD COUNT 9.5 10^3/uL (4.0-10.5)
[2018-03-26 05:52] LABS: HEMOGLOBIN 6.9 g/dL (12.0-15.5)
[2018-03-26] MEDS ORDERED: NORMAL SALINE 250 ML IV PRN ×2 (06:42→11:16)
[2018-03-26] MEDS ORDERED: RINGERS SOLUTION,LACTATED 1,000 ML IV PRN (07:00)
[2018-03-26] MEDS: OXYCODONE-ACETAMINOPHEN 5-325 MG TABLET PO PRN ×2 (08:34→21:03)
[2018-03-26] MEDS ORDERED: DIPHENHYDRAMINE HCL 25 MG CAPSULE PO SCH (09:15)
[2018-03-26] MEDS ORDERED: ACETAMINOPHEN 325 MG TABLET PO SCH (09:15)
--- NOTE | 2018-03-26 11:02 | PDOC PROGRESS REPORT ---
Subjective Progress Note for:: 03/26/18 Subjective:: Patient states that she feels good; pain controlled; patient denies chest pain, shortness of breath, fever/chills or nausea/vomiting. Patient has not ambulated much. She is voiding without difficulty. Patient declined the blood transfusion Reason For Visit: RUPTURED ECTOPIC Physical Exam - Physical Exam Vital Signs: Temp Pulse Resp BP Pulse Ox 98.9 F 76 16 105/55 L 97 03/26/18 08:02 03/26/18 08:02 03/26/18 08:02 03/26/18 08:02 03/26/18 08:27 Intake & Output 03/25/18 03/26/18 03/27/18 06:59 06:59 06:59 Intake Total 3925 Output Total 1780 550 Balance 2145 -550 General appearance: PRESENT: no acute distress Respiratory exam: PRESENT: clear to auscultation yosvany Cardiovascular exam: PRESENT: RRR GI/Abdominal exam: PRESENT: soft, tenderness - Port site incisions: Clean/dry/ intact Extremities exam: PRESENT: full ROM. ABSENT: calf tenderness, clubbing, pedal edema Result Laboratory Results: 03/26/18 05:24 03/26/18 05:24 WBC 9.5 RBC 2.39 L Hgb 6.9 L D Hct 20.6 L MCV 86 MCH 28.8 MCHC 33.6 RDW 16.9 H Plt Count 257 Seg Neutrophils % 86.4 H Lymphocytes % 10.2 L Monocytes % 3.0 Eosinophils % 0.1 Basophils % 0.3 Absolute Neutrophils 8.2 Absolute Lymphocytes 1.0 Absolute Monocytes 0.3 Absolute Eosinophils 0.0 Absolute Basophils 0.0 Impressions: Obstetrics Ultrasound 03/25/18 14:11 IMPRESSION: No intrauterine . Suspect ruptured ectopic . Assessment & Plan - Diagnosis (1) Postoperative anemia due to acute blood loss Is this a current diagnosis for this admission?: Yes (2) Status post laparoscopy Is this a current diagnosis for this admission?: Yes - Plan Summary Plan Summary: 1. Patient explained the risks and benefits of the blood transfusion and finally agreed to receive 2 units of packed red blood cells 2. Anticipate discharge later this evening 3. Follow-up as instructed
[2018-03-26] MEDS ORDERED: DIPHENHYDRAMINE HCL 25 MG CAPSULE PO PRN (11:53)
[2018-03-26] MEDS ORDERED: ACETAMINOPHEN 325 MG TABLET PO PRN (11:54)
[2018-03-26] MEDS ORDERED: NORMAL SALINE 500 ML IV PRN (11:58)
[2018-03-26 20:02] LABS: ABSOLUTE EOSINOPHILS # (AUTO) 0.1 10^3/uL (0.0-0.6); ABSOLUTE LYMPHOCYTES (AUTO) 3.2 10^3/uL (0.5-4.7); ABSOLUTE MONOCYTES (AUTO) 0.7 10^3/uL (0.1-1.4); ABSOLUTE NEUT (AUTO) 6.3 10^3/uL (1.7-8.2); BASOPHILS % (AUTO) 0.4 % (0-2); EOSINOPHILS % (AUTO) 0.8 % (0-6); HEMATOCRIT 25.4 % (36.0-47.0); HEMOGLOBIN 8.6 g/dL (12.0-15.5); LYMPHOCYTES % (AUTO) 31.1 % (13-45); MEAN CORPUSCULAR HEMOGLOBIN 29.1 pg (27.0-33.4); MEAN CORPUSCULAR HGB CONC 33.9 g/dL (32.0-36.0); MEAN CORPUSCULAR VOLUME 86 fl (80-97); MONOCYTES % (AUTO) 6.9 % (3-13); PLATELET COUNT 220 10^3/uL (150-450); RED BLOOD COUNT 2.95 10^6/uL (3.72-5.28); RED CELL DISTRIBUTION WIDTH 15.3 % (11.5-14.0); SEGMENTED NEUTROPHILS % (AUTO) 60.8 % (42-78); TOTAL CELLS COUNTED % (AUTO) 100 %; WHITE BLOOD COUNT 10.4 10^3/uL (4.0-10.5)
--- NOTE | 2018-03-26 21:25 | Discharge Summary ---
Discharge Summary (SDC) - Discharge Final Diagnosis: Right ectopic Date of Surgery: 03/25/18 Discharge Date: 03/26/18 Condition: Stable Treatment or Instructions: 1. May shower as usual 2. Do not lift anything heavier than 10 lbs 3. Notify the office if: Temp>100.4, severe pain or heavy bleeding Prescriptions: Ibuprofen [Motrin 800 mg Tablet] 800 mg PO Q8H PRN #30 tablet PRN Reason: For Pain Discharge Diet: Regular Respiratory Treatments at Home: Deep Breathing/Coughing Discharge Activity: No Lifting Over 10 Pounds, Pelvic Rest Home Care Assistance: None Needed Report the Following to Your Physician Immediately: Increase in Pain, Fever over 101 Degrees, Redness
[2018-03-26 22:03] VITALS: BP 100/53
== END 2018-03-26 23:20 | disposition home or self-care (01) | DRG 777 ==
LOC: ER 12:42 → EH 16:09 → 2S 19:25 → OBSVTOIN 03-26 06:40
PROVIDERS: ADMIT Obstetrics & Gynecology; ATTEND Obstetrics & Gynecology
PROC: 0DNU4ZZ Release Omentum, Percutaneous Endoscopic Approach (ICD-10-PCS; 2018-03-25)
PROC: 0UT54ZZ Resection of Right Fallopian Tube, Percutaneous Endoscopic Approach (ICD-10-PCS; 2018-03-25)
PROC: 0U954ZZ Drainage of Right Fallopian Tube, Percutaneous Endoscopic Approach (ICD-10-PCS; 2018-03-25)
PROC: 10T24ZZ Resection of Products of Conception, Ectopic, Percutaneous Endoscopic Approach (ICD-10-PCS; principal; 2018-03-25 19:00)
PROC: 30233N1 Transfusion of Nonautologous Red Blood Cells into Peripheral Vein, Percutaneous Approach (ICD-10-PCS; 2018-03-26)
DX: O00.101 Right tubal pregnancy without intrauterine pregnancy (principal); K66.1 Hemoperitoneum; D62 Acute posthemorrhagic anemia; K66.0 Peritoneal adhesions (postprocedural) (postinfection); I10 Essential (primary) hypertension
CPT/HCPCS: 36415; 36430; 51702; 76817; 80053; 81001; 81025; 82803; 82962; 83605; 840; 84702; 84703; 85025; 85610; 86850; 86900; 86901; 86920; 87040; 87086; 88305; 93005; 93010; 96361; 96374; 96375; 99291; J0131; J0330; J1100; J1170; J1885; J2001; J2250; J2270; J2370; J2405; J2704; J2765; J3010; J3490; J7030; J7040; J7120; P9016

== ENCOUNTER 2018-03-28 05:24 | Emergency (ER) | payer MEDICAID ==
[2018-03-28 05:32] VITALS: BP 147/85
--- NOTE | 2018-03-28 05:41 | ER Document Report ---
ED GI/ - General Chief Complaint: Vaginal Bleeding Stated Complaint: VAGINAL CRAMPING Time Seen by Provider: 03/28/18 05:40 Mode of Arrival: Ambulatory Information source: Patient, Relative Notes: Patient is a 28-year-old black female comes emergency room complaining of spotting. Patient had surgery for an ectopic on Monday performed here at the hospital. She states that she has normal surgical discomfort but she has spotting going on that is about moderate in nature. She states that is bright red blood. It started this morning approximately 2 hours prior to arrival. She denies any new trauma and states that the discomfort is only mild. States that it feels like she has a urinary tract infection. She had laparoscopic procedure done for this. TRAVEL OUTSIDE OF THE [place] IN LAST 30 DAYS: No - HPI Patient complains to provider of: Dysuria, Vaginal bleeding. No: Flank pain, Vaginal discharge Onset: Other - 2 hours prior to arrival Timing/Duration: Sudden Quality of pain: No pain Severity at maximum: Moderate Severity in ED: Mild Pain Level: 2 Context: Other - Ectopic with surgical removal of fallopian tube Location: Pelvis Vaginal bleeding (Compared to normal period): Spotting, Similar. denies: Passing clots, Passing tissue Menstrual period history: Abnormal Associated symptoms: None Exacerbated by: Denies Relieved by: Denies Similar symptoms previously: No Recently seen / treated by doctor: Yes Notes: 03/28/18 06:48 Patient was seen by Dr. Rolle for ruptured left-sided fallopian tube and acute anemia secondary to blood loss during surgery. Patient had informed me that she had had a blood transfusion however according to Dr. Rolle's note patient declined to have the transfusion. - Related Data Allergies/Adverse Reactions: No Known Allergies Allergy (Verified 03/25/18 12:42) Past Medical History - General Information source: Patient - Social History Smoking Status: Never Smoker Cigarette use (# per day): No Chew tobacco use (# tins/day): No Smoking Education Provided: No Frequency of alcohol use: None Drug Abuse: None Family History: Reviewed & Not Pertinent Patient has suicidal ideation: No Patient has homicidal ideation: No - Past Medical History Cardiac Medical History: Denies: Hx Hypertension, Hx Pulmonary Embolism, Hx Heart Murmur Pulmonary Medical History: Denies: Hx Asthma, Hx Sleep Apnea, Hx Tuberculosis Neurological Medical History: Denies: Hx Seizures Endocrine Medical History: Denies: Hx Hyperthyroidism, Hx Hypothyroidism Renal/ Medical History: Denies: Hx Kidney Stones, Hx Ovarian Cysts, Hx Peritoneal Dialysis, Hx Pelvic Inflammatory Disease Malignancy Medical History: Denies: Hx Breast Cancer, Hx Cervical Cancer, Hx Ovarian Cancer GI Medical History: Denies: Hx Gastroesophageal Reflux Disease, Hx Hiatal Hernia , Hx Ulcer Musculoskeletal Medical History: Denies Hx Fibromyalgia Psychiatric Medical History: Denies: Hx Bipolar Disorder, Hx Depression, Hx Post Traumatic Stress Disorder , Hx Schizophrenia Traumatic Medical History: Denies: Hx Fractures Infectious Medical History: Denies: Hx HIV Past Surgical History: Reports: Hx Section Other: Laparoscopic procedure for ruptured left-sided ectopic - Immunizations Immunizations up to date: Yes Hx Diphtheria, Pertussis, Tetanus Vaccination: Yes Review of Systems - Review of Systems Constitutional: No symptoms reported EENT: No symptoms reported Cardiovascular: No symptoms reported Respiratory: No symptoms reported Gastrointestinal: No symptoms reported Genitourinary: See HPI, Urgency, Other Female Genitourinary: Vaginal bleeding Musculoskeletal: No symptoms reported Skin: No symptoms reported Hematologic/Lymphatic: No symptoms reported Neurological/Psychological: No symptoms reported -: Yes All other systems reviewed and negative Physical Exam - Vital signs Vitals: Temp Pulse Resp BP Pulse Ox 98.2 F 72 17 147/85 H 100 03/28/18 05:31 03/28/18 05:31 03/28/18 05:31 03/28/18 05:31 03/28/18 05:31 Interpretation: Hypertensive - Notes Notes: Patient is a 28-year-old morbidly obese black female who is stated comes to emergency room for feeling of heaviness in her pelvic area. States it is kind of like a urinary tract infection. She is spotting moderately. Previous surgery on Monday for ectopic ruptured . - General General appearance: Alert - HEENT Head: Normocephalic, Atraumatic Eyes: Normal Pharynx: Normal Neck: Normal - Respiratory Respiratory status: No respiratory distress Chest status: Nontender Breath sounds: Normal. No: Rales, Rhonchi, Stridor, Wheezing Chest palpation: Normal - Cardiovascular Rhythm: Regular Heart sounds: Normal auscultation Murmur: No - Abdominal Inspection: Healed incision, Other - Examination patient's abdominal surgical area shows 2 spots on the umbilicus and one in the left lower quadrant where incisions were made for the scope. They appear to be healing well no erythema no discharge no warmth to touch. Distension: No distension Bowel sounds: Normal Tenderness: Tender, Other - Palpation of all 4 quads show patient has some mild tenderness in the suprapubic area only. Organomegaly: No organomegaly - Extremities General upper extremity: Normal inspection General lower extremity: Normal inspection - Neurological Neuro grossly intact: Yes Cognition: Normal Orientation: AAOx4 [place] Coma Scale Eye Opening: Spontaneous Carri Coma Scale Verbal: Oriented Carri Coma Scale Motor: Obeys Commands Carri Coma Scale Total: 15 Speech: Normal Course - Vital Signs Vital signs: Temp Pulse Resp BP Pulse Ox 98.2 F 72 17 147/85 H 100 03/28/18 05:31 03/28/18 05:31 03/28/18 05:31 03/28/18 05:31 03/28/18 05:31 - Laboratory Laboratory results interpreted by me: 03/28/18 05:48 Urine Blood LARGE H - Transfer of Care Notes: 03/28/18 06:54 In discussion with patient we talked about this feeling like a urinary tract infection patient agreed to have a urine checked before we did any other major workup. It came back with only a large amount of blood nothing else. I went in to discuss patient options of having a pelvic performed here in the emergency room which she agreed to. I told her I would be on look and see if she is having direct bleeding from the vaginal area and or secondary bleeding. I told her sometimes there is a normal tendency to have some mild vaginal bleeding after the type of surgery. A put in the order for the pelvic ultrasound the nurse took inpatient gown she was last seen taking off her clothes and putting the ground on when about 5 minutes later a went to do the pelvic and patient's gown was on the bed and she was gone. Patient eloped without the having the pelvic performed. It seems as may go along with why patient did not want blood transfusion but told me she had had one. So basically patient left by eloping and AMA. Discharge - Discharge Clinical Impression: Abnormal vaginal bleeding, Postoperative anemia due to acute blood loss Disposition: AGAINST MEDICAL ADVICE Forms: Elevated Blood Pressure
[2018-03-28 06:22] LABS: APPEARANCE,URINE CLEAR; BILIRUBIN,URINE NEGATIVE (NEGATIVE); COLOR,URINE STRAW; GLUCOSE, URINE NEGATIVE (NEGATIVE); KETONES,URINE NEGATIVE (NEGATIVE); LEUKOCYTE ESTERASE,URINE NEGATIVE (NEGATIVE); NITRITE,URINE NEGATIVE (NEGATIVE); PROTEIN,URINE NEGATIVE (NEGATIVE); URINE SPECIFIC GRAVITY 1.005; UROBILINOGEN,URINE NEGATIVE mg/dL (<2.0)
== END 2018-03-28 06:59 | disposition left against medical advice (07) ==
LOC: ER 05:24
DX: D62 Acute posthemorrhagic anemia (principal); N93.9 Abnormal uterine and vaginal bleeding, unspecified; Z53.21 Procedure and treatment not carried out due to patient leaving prior to being seen by health care provider
CPT/HCPCS: 81001; 99281

== ENCOUNTER 2018-08-24 08:03 | Emergency (ER) | payer SELFPAY ==
[2018-08-24 08:10] VITALS: BP 116/68
[2018-08-24 09:32] LABS: APPEARANCE,URINE CLOUDY; BILIRUBIN,URINE NEGATIVE (NEGATIVE); COLOR,URINE YELLOW; GLUCOSE, URINE NEGATIVE (NEGATIVE); KETONES,URINE NEGATIVE (NEGATIVE); LEUKOCYTE ESTERASE,URINE SMALL (NEGATIVE); NITRITE,URINE POSITIVE (NEGATIVE); PROTEIN,URINE NEGATIVE (NEGATIVE); URINE SPECIFIC GRAVITY 1.023; UROBILINOGEN,URINE NEGATIVE mg/dL (<2.0)
[2018-08-24] MEDS ORDERED: ONDANSETRON 4 MG TAB.RAPDIS PO ONE (10:42)
--- NOTE | 2018-08-24 10:43 | ER Document Report ---
ED Medical Screen (RME) - General Chief Complaint: Abdominal Pain Stated Complaint: ABDOMINAL PAIN/HEADACHE/NAUSEA/DIZZY Time Seen by Provider: 08/24/18 10:41 Mode of Arrival: Ambulatory Information source: Patient Notes: 28-year-old female with a past medical history significant for ectopic presents emergency department with complaints of suprapubic abdominal pain for the last 2 weeks. Patient states that she is having associated nausea but denies any vomiting, diarrhea, constipation, dysuria, hematuria, increased urgency, increased frequency. She states that she is having an increased amount of vaginal discharge. I have greeted and performed a rapid initial assessment of this patient. A comprehensive ED assessment and evaluation of the patient, analysis of test results and completion of the medical decision making process will be conducted by additional ED providers. PHYSICAL EXAMINATION: GENERAL: Well-appearing, well-nourished and in no acute distress. HEAD: Atraumatic, normocephalic. EYES: Pupils equal round extraocular movements intact, conjunctiva are normal. ENT: Nares patent NECK: Normal range of motion LUNGS: No respiratory distress Musculoskeletal: Normal range of motion NEUROLOGICAL: Normal speech, normal gait. PSYCH: Normal mood, normal affect. SKIN: Warm, Dry, normal turgor, no rashes or lesions noted. TRAVEL OUTSIDE OF THE [place] IN LAST 30 DAYS: No - Related Data Allergies/Adverse Reactions: No Known Allergies Allergy (Verified 08/24/18 08:06) Past Medical History - Social History Chew tobacco use (# tins/day): No Frequency of alcohol use: None Drug Abuse: None - Past Medical History Cardiac Medical History: Denies: Hx Hypertension, Hx Pulmonary Embolism, Hx Heart Murmur Pulmonary Medical History: Denies: Hx Asthma, Hx Sleep Apnea, Hx Tuberculosis Neurological Medical History: Denies: Hx Seizures Endocrine Medical History: Denies: Hx Hyperthyroidism, Hx Hypothyroidism Renal/ Medical History: Denies: Hx Kidney Stones, Hx Ovarian Cysts, Hx Peritoneal Dialysis, Hx Pelvic Inflammatory Disease Malignancy Medical History: Denies: Hx Breast Cancer, Hx Cervical Cancer, Hx Ovarian Cancer GI Medical History: Denies: Hx Gastroesophageal Reflux Disease, Hx Hiatal Hernia, Hx Ulcer Musculoskeltal Medical History: Denies Hx Fibromyalgia Psychiatric Medical History: Denies: Hx Bipolar Disorder, Hx Depression, Hx Post Traumatic Stress Disorder, Hx Schizophrenia Traumatic Medical History: Denies: Hx Fractures Infectious Medical History: Denies: Hx HIV Past Surgical History: Reports: Hx Abdominal Surgery, Hx Section - x 2, Hx Cholecystectomy, Hx Gynecologic Surgery - eptopic - Immunizations Immunizations up to date: Yes Hx Diphtheria, Pertussis, Tetanus Vaccination: Yes Physical Exam - Vital signs Vitals: Temp Pulse Resp BP Pulse Ox 99.0 F 78 18 116/68 100 08/24/18 08:09 08/24/18 08:09 08/24/18 08:09 08/24/18 08:09 08/24/18 08:09 Course - Vital Signs Vital signs: Temp Pulse Resp BP Pulse Ox 99.0 F 78 18 116/68 100 08/24/18 08:09 08/24/18 08:09 08/24/18 08:09 08/24/18 08:09 08/24/18 08:09 - Laboratory Laboratory results interpreted by me: 08/24/18 09:10 Urine Blood SMALL H Urine Nitrite POSITIVE H Ur Leukocyte Esterase SMALL H
--- NOTE | 2018-08-24 11:37 | ER Document Report ---
ED GI/ - General Chief Complaint: Abdominal Pain Stated Complaint: ABDOMINAL PAIN/HEADACHE/NAUSEA/DIZZY Time Seen by Provider: 08/24/18 10:41 Mode of Arrival: Ambulatory Notes: Patient says she is having nausea without vomiting, headache, and lower midline abdominal pains off and on over the last 2 weeks. She is also feeling lightheaded. Denies any fever. Denies any UTI symptoms. Last period was July 17. Patient has a history of an ectopic of the right tube and had surgery for that about a year ago. Not having any vaginal bleeding. TRAVEL OUTSIDE OF THE [place] IN LAST 30 DAYS: No - Related Data Allergies/Adverse Reactions: No Known Allergies Allergy (Verified 08/24/18 08:06) Past Medical History - General Information source: Patient - Social History Smoking Status: Current Every Day Smoker Chew tobacco use (# tins/day): No Frequency of alcohol use: None Drug Abuse: None Family History: Reviewed & Not Pertinent Patient has suicidal ideation: No Patient has homicidal ideation: No Renal/ Medical History: Denies: Hx Kidney Stones, Hx Ovarian Cysts, Hx Peritoneal Dialysis, Hx Pelvic Inflammatory Disease Past Surgical History: Reports: Hx Abdominal Surgery, Hx Section - x 2, Hx Cholecystectomy, Hx Gynecologic Surgery - eptopic - Immunizations Immunizations up to date: Yes Hx Diphtheria, Pertussis, Tetanus Vaccination: Yes Review of Systems - Review of Systems Notes: REVIEW OF SYSTEMS: CONSTITUTIONAL : Denies fever. EENT: Denies eye, ear, nose or mouth or throat pain or other symptoms. CARDIOVASCULAR: Denies chest pain. RESPIRATORY: Denies cough, chest congestion, or shortness of breath. GASTROINTESTINAL: See HPI. GENITOURINARY: Denies difficulty or painful urinating, urinary frequency, blood in urine. LMP July 17. MUSCULOSKELETAL: Denies back or neck pain. Denies joint pain or swelling. SKIN: Denies rash or skin lesions. NEUROLOGICAL: Denies LOC or altered mental status. Has had a headache. Feels lightheaded. Denies sensory loss or motor deficits. ALL OTHER SYSTEMS REVIEWED AND NEGATIVE. Physical Exam - Vital signs Vitals: Temp Pulse Resp BP Pulse Ox 99.0 F 78 18 116/68 100 08/24/18 08:09 08/24/18 08:09 08/24/18 08:09 08/24/18 08:09 08/24/18 08:09 Interpretation: Normal Notes: PHYSICAL EXAMINATION: GENERAL: Well-appearing, in no acute distress. HEAD: Atraumatic, normocephalic. EYES: Pupils equal round and reactive to light, extraocular movements intact. ENT: oropharynx clear without exudates. Moist mucous membranes. NECK: Normal range of motion, supple. LUNGS: Breath sounds clear and equal bilaterally. HEART: Regular rate and rhythm without murmurs. ABDOMEN: Soft, nontender. No guarding or rebound. No masses. Pelvic exam deferred since I am doing an ultrasound. BACK: No tenderness throughout entire back. EXTREMITIES: Normal range of motion without pain. NEUROLOGICAL: Normal speech, normal gait. Normal sensory, motor, and reflex exams. Awake, alert, and oriented x3. Cranial nerves normal. PSYCH: Normal mood, normal affect. SKIN: Warm, dry, no rashes. Course - Re-evaluation Re-evalutation: 08/24/18 19:55 As I went to discuss the findings with the patient and plan on discharging the patient, nursing staff said the patient had left without notice. - Vital Signs Vital signs: Temp Pulse Resp BP Pulse Ox 99.0 F 78 18 116/68 100 08/24/18 08:09 08/24/18 08:09 08/24/18 08:09 08/24/18 08:09 08/24/18 08:09 - Laboratory Result Diagrams: 08/24/18 12:15 Laboratory results interpreted by me: 08/24/18 08/24/18 08/24/18 09:10 09:10 12:15 Hgb 11.3 L Hct 34.8 L RDW 16.7 H Seg Neutrophils % 41.0 L Lymphocytes % 48.1 H Beta HCG, Quant Urine Blood SMALL H Urine Nitrite POSITIVE H Ur Leukocyte Esterase SMALL H Urine HCG, Qual POSITIVE H 08/24/18 12:15 Hgb Hct RDW Seg Neutrophils % Lymphocytes % Beta HCG, Quant 61814.00 H Urine Blood Urine Nitrite Ur Leukocyte Esterase Urine HCG, Qual - Diagnostic Test Radiology reviewed: Image reviewed, Reports reviewed - Ultrasound shows a gestational sac, but no pole. No evidence of intra-uterine or outside the uterus. Discharge - Discharge Clinical Impression: Condition: Good Disposition: HOME, SELF-CARE
--- NOTE | 2018-08-24 12:23 | RADIOLOGY REPORT (SQ) ---
EXAM DESCRIPTION: U/S OB TRANSVAG W/DOPPLER COMPLETED DATE/TIME: 08/24/2018 12:10 pm REASON FOR STUDY: Lower mid abd pain, positive urine preg test COMPARISON: None. TECHNIQUE: Transvaginal static and realtime grayscale images acquired of the pelvis. Additional jake cted spectral and color Doppler images recorded. All images stored on PACs. CLINICAL AGE: 5 weeks 3 days bHCG: Not available. LIMITATIONS: None. FINDINGS: UTERUS: No masses. No anomalies. GESTATIONAL SAC: Normal shape. Mean sac diameter 1.2 YOLK SAC: Yes. POLE: None present. RIGHT ADNEXA: Normal ovary with normal vascular flow. No adnexal free fluid. 3.4 cm cyst. LEFT ADNEXA: Ovary not identified due to poor acoustical window. No adnexal free fluid. No adnexal masses. FREE FLUID: None. OTHER: No other significant finding. IMPRESSION: POSSIBLE EARLY INTRAUTERINE . BHCG LEVEL NOT AVAILABLE FOR CORRELATION WITH US FINDINGS. CONSIDER F/U BHCG AND/OR ULTRASOUND FOR VERIFICATION AND TO EXCLUDE ECTOPIC . Trimester of : First - 0 to 13 weeks. TECHNICAL DOCUMENTATION: JOB ID: [id number] [employer]- All Rights Reserved Reading location - IP/workstation name: [email or web address]
[2018-08-24 12:49] LABS: ABSOLUTE EOSINOPHILS # (AUTO) 0.2 10^3/uL (0.0-0.6); ABSOLUTE LYMPHOCYTES (AUTO) 2.5 10^3/uL (0.5-4.7); ABSOLUTE MONOCYTES (AUTO) 0.4 10^3/uL (0.1-1.4); ABSOLUTE NEUT (AUTO) 2.2 10^3/uL (1.7-8.2); BASOPHILS % (AUTO) 0.6 % (0-2); EOSINOPHILS % (AUTO) 3.6 % (0-6); HEMATOCRIT 34.8 % (36.0-47.0); HEMOGLOBIN 11.3 g/dL (12.0-15.5); LYMPHOCYTES % (AUTO) 48.1 % (13-45); MEAN CORPUSCULAR HEMOGLOBIN 28.3 pg (27.0-33.4); MEAN CORPUSCULAR HGB CONC 32.5 g/dL (32.0-36.0); MEAN CORPUSCULAR VOLUME 87 fl (80-97); MONOCYTES % (AUTO) 6.7 % (3-13); PLATELET COUNT 364 10^3/uL (150-450); RED CELL DISTRIBUTION WIDTH 16.7 % (11.5-14.0); TOTAL CELLS COUNTED % (AUTO) 100 %; WHITE BLOOD COUNT 5.3 10^3/uL (4.0-10.5)
== END 2018-08-24 14:03 | disposition home or self-care (01) ==
LOC: ER 08:03
DX: O26.891 Other specified pregnancy related conditions, first trimester (principal); R11.0 Nausea; R51 Headache; R10.30 Lower abdominal pain, unspecified; R42 Dizziness and giddiness; O99.331 Smoking (tobacco) complicating pregnancy, first trimester; Z3A.01 Less than 8 weeks gestation of pregnancy; Z87.59 Personal history of other complications of pregnancy, childbirth and the puerperium; Z98.890 Other specified postprocedural states
CPT/HCPCS: 99283; 36415; 84702; 85025; 81025; 81001; 76817; 93976; S0119

== ENCOUNTER → 2018-09-14 | Outpatient (CLI) | payer MEDICAID ==
--- NOTE | 2018-09-14 15:02 | RADIOLOGY REPORT (SQ) ---
EXAM DESCRIPTION: U/S [id number] TRNABD 1GES W/ODOP COMPLETED DATE/TIME: 09/14/2018 2:32 pm REASON FOR STUDY: Z34.81 ENCOUNTER FOR SUPERVISION OF OTHER NORMAL , FIRST TRIMESTER Z34.81 ENCOUNTER FOR SUPRVSN OF NORMAL , FIRST TRIM COMPARISON: No previous this TECHNIQUE: Transabdominal static and realtime grayscale images acquired of the pelvis. Additional se lected spectral and color Doppler images recorded. All images stored on PACs. bHCG: Not available CLINICAL DATES: Last menses 07/17/2018 LIMITATIONS: Left adnexa and ovary not visualized due to bowel gas FINDINGS: FETUS: Single Living intrauterine . ULTRASOUND EGA: 8 weeks 1 day ULTRASOUND GUSTAVO: 04/25/2019 EFW: Not applicable less than 20 weeks. CRL: 1.7 cm FHR: 189 beats per minute. SURVEY: Too early to assess. AMNIOTIC FLUID: Adequate amount. PLACENTA: Not yet developed due to early gestation. SUBCHORIONIC BLEED: Yes SIZE OF BLEED: 2.3 x 1 x 1 cm UTERUS: No masses. No anomalies. Uterus is 12 x 7 x 7 cm CERVICAL LENGTH: 3 cm in length. Closed. RIGHT ADNEXA: Normal ovary with normal vascular flow. Right ovary is 4 x 4.2 x 3.8 cm in size, with a 3.6 cm simple cyst. No adnexal free fluid. No adnexal masses. LEFT ADNEXA: Not visualized due to adnexal bowel gas FREE FLUID: None. OTHER: No other significant finding. IMPRESSION: LIVING INTRAUTERINE . EGA 8 weeks 1 day. Small subchorionic hemorrhage Trimester of : First - 0 to 13 weeks. TECHNICAL DOCUMENTATION: JOB ID: [id number]- All Rights Reserved rev Reading location - IP/workstation name: [email or web address]
== END ==
LOC: EDSTATUS 08:42 → RAD 13:39
PROVIDERS: ATTEND Midwife
DX: Z34.81 Encounter for supervision of other normal pregnancy, first trimester (principal)
CPT/HCPCS: 76801

== ENCOUNTER 2018-11-05 17:36 | Emergency (ER) | payer MEDICAID ==
--- NOTE | 2018-11-05 18:13 | ER Document Report ---
ED Medical Screen (RME) - General Chief Complaint: Nausea/Vomiting/Diarrhea Stated Complaint: VOMITING Time Seen by Provider: 11/05/18 18:05 Primary Care Provider: TIFFANIE MARTIN CNM [Primary Care Provider] - Follow up as needed Mode of Arrival: Ambulatory Information source: Patient TRAVEL OUTSIDE OF THE [place] IN LAST 30 DAYS: No - HPI Patient complains to provider of: sandro pain Notes: 11/05/18 18:11 Patient here with complaints of nausea, vomiting, diarrhea as well as lower abdominal pain and cramping. Patient is approximately 15 weeks . No vaginal bleeding. She states that she has some pressure when she urinates as well. No fever. In reviewing her records, patient is noted to be O+. Exam Nontoxic, no distress. Mild lower abdominal tenderness to palpation. Lungs clear and equal throughout. Plan CBC, CMP, urinalysis, hCG, ultrasound. An initial examination was made on the patient as part of the triage process, and it was determined a more comprehensive evaluation was necessary. Initial labs were ordered and patient was transferred to another provider in the ED who assumed care and finished evaluation and plan. - Related Data Allergies/Adverse Reactions: No Known Allergies Allergy (Verified 11/05/18 17:38) Past Medical History - Social History Chew tobacco use (# tins/day): No Frequency of alcohol use: None Drug Abuse: None - Past Medical History Cardiac Medical History: Denies: Hx Hypertension, Hx Pulmonary Embolism, Hx Heart Murmur Pulmonary Medical History: Denies: Hx Asthma, Hx Sleep Apnea, Hx Tuberculosis Neurological Medical History: Denies: Hx Seizures Endocrine Medical History: Denies: Hx Hyperthyroidism, Hx Hypothyroidism Renal/ Medical History: Denies: Hx Kidney Stones, Hx Ovarian Cysts, Hx Peritoneal Dialysis, Hx Pelvic Inflammatory Disease Malignancy Medical History: Denies: Hx Breast Cancer, Hx Cervical Cancer, Hx Ovarian Cancer GI Medical History: Denies: Hx Gastroesophageal Reflux Disease, Hx Hiatal Hernia, Hx Ulcer Musculoskeltal Medical History: Denies Hx Fibromyalgia Psychiatric Medical History: Denies: Hx Bipolar Disorder, Hx Depression, Hx Post Traumatic Stress Disorder, Hx Schizophrenia Traumatic Medical History: Denies: Hx Fractures Infectious Medical History: Denies: Hx HIV Past Surgical History: Reports: Hx Abdominal Surgery, Hx Section - x 2, Hx Cholecystectomy, Hx Gynecologic Surgery - eptopic - Immunizations Immunizations up to date: Yes Hx Diphtheria, Pertussis, Tetanus Vaccination: Yes Physical Exam - Vital signs Vitals: Temp Pulse Resp BP Pulse Ox 99.2 F 87 16 120/69 100 11/05/18 17:45 11/05/18 17:45 11/05/18 17:45 11/05/18 17:45 11/05/18 17:45 Course - Vital Signs Vital signs: Temp Pulse Resp BP Pulse Ox 99.2 F 87 16 120/69 100 11/05/18 17:45 11/05/18 17:45 11/05/18 17:45 11/05/18 17:45 11/05/18 17:45 Doctor's Discharge - Discharge Referrals: TIFFANIE MARTIN CNM [Primary Care Provider] - Follow up as needed
[2018-11-05 19:02] LABS: ABSOLUTE EOSINOPHILS # (AUTO) 0.2 10^3/uL (0.0-0.6); ABSOLUTE LYMPHOCYTES (AUTO) 2.7 10^3/uL (0.5-4.7); ABSOLUTE MONOCYTES (AUTO) 0.5 10^3/uL (0.1-1.4); ABSOLUTE NEUT (AUTO) 3.4 10^3/uL (1.7-8.2); APPEARANCE,URINE CLOUDY; BASOPHILS % (AUTO) 0.3 % (0-2); BILIRUBIN,URINE NEGATIVE (NEGATIVE); EOSINOPHILS % (AUTO) 3.3 % (0-6); GLUCOSE, URINE NEGATIVE (NEGATIVE); HEMATOCRIT 34.8 % (36.0-47.0); HEMOGLOBIN 11.8 g/dL (12.0-15.5); KETONES,URINE NEGATIVE (NEGATIVE); LEUKOCYTE ESTERASE,URINE NEGATIVE (NEGATIVE); LYMPHOCYTES % (AUTO) 38.8 % (13-45); MEAN CORPUSCULAR HGB CONC 34.1 g/dL (32.0-36.0); MEAN CORPUSCULAR VOLUME 88 fl (80-97); MONOCYTES % (AUTO) 7.4 % (3-13); NITRITE,URINE POSITIVE (NEGATIVE); PLATELET COUNT 322 10^3/uL (150-450); PROTEIN,URINE NEGATIVE (NEGATIVE); RED BLOOD COUNT 3.95 10^6/uL (3.72-5.28); RED CELL DISTRIBUTION WIDTH 14.8 % (11.5-14.0); SEGMENTED NEUTROPHILS % (AUTO) 50.2 % (42-78); TOTAL CELLS COUNTED % (AUTO) 100 %; URINE SPECIFIC GRAVITY 1.021; UROBILINOGEN,URINE NEGATIVE mg/dL (<2.0); WHITE BLOOD COUNT 6.8 10^3/uL (4.0-10.5)
[2018-11-05 19:04] LABS: COLOR,URINE YELLOW
[2018-11-05 19:23] LABS: ALANINE AMINOTRANSFERASE 15 U/L (9-52); ALBUMIN 3.6 g/dL (3.5-5.0); ALKALINE PHOSPHATASE 66 U/L (38-126); ANION GAP 8 (5-19); ASPARTATE AMINO TRANSFERASE 13 U/L (14-36); BILIRUBIN,DIRECT 0.1 mg/dL (0.0-0.4); BILIRUBIN,TOTAL 0.1 mg/dL (0.2-1.3); BLOOD UREA NITROGEN 8 mg/dL (7-20); CALCIUM 9.8 mg/dL (8.4-10.2); CARBON DIOXIDE 21 mmol/L (22-30); CHLORIDE 106 mmol/L (98-107); GLUCOSE 84 mg/dL (75-110); LIPASE 50.3 U/L (23-300); POTASSIUM 4.3 mmol/L (3.6-5.0); SODIUM 134.6 mmol/L (137-145)
--- NOTE | 2018-11-05 19:38 | RADIOLOGY REPORT (SQ) ---
EXAM DESCRIPTION: U/S OB 14+ TA/1 GEST W/DOPPLER COMPLETED DATE/TIME: 11/05/2018 7:04 pm REASON FOR STUDY: preg, abdo pain COMPARISON: 08/24/2018 TECHNIQUE: Limited transabdominal grayscale ultrasound for evaluation of specific requested obstetri alexis parameters. LIMITATIONS: None. FINDINGS: CERVICAL LENGTH: 2.5 center Closed. LVP: 4 cm. Live intrauterine measuring 16 weeks 4 days. GUSTAVO 04/18/2019 FHR: 165 beats per minute. PRESENTATION: Breech. PLACENTA: Anterior ANATOMY: Not assessed OTHER: No other significant findings. IMPRESSION: LIMITED OBSTETRICAL ULTRASOUND WITH MEASURED PARAMETERS DELINEATED ABOVE. Trimester of : Second trimester - 13 weeks 1 day to 27 weeks 6 days. TECHNICAL DOCUMENTATION: JOB ID: [id number] [id number] 2010 [employer]- All Rights Reserved Reading location - IP/workstation name: [email or web address]
[2018-11-05] MEDS ORDERED: METOCLOPRAMIDE HCL 10 MG TABLET PO ONE (21:46)
--- NOTE | 2018-11-05 21:49 | ER Document Report ---
ED GI/ - General Chief Complaint: Nausea/Vomiting/Diarrhea Stated Complaint: VOMITING Time Seen by Provider: 11/05/18 18:05 Primary Care Provider: TIFFANIE MARTIN CNM [NO LOCAL MD] - Follow up as needed Mode of Arrival: Ambulatory Notes: Patient is a 28-year-old female, G5, P4 at 16 weeks gestation, that comes to the emergency department for chief complaint of 2 days of vomiting, diarrhea, and intermittent lower abdominal cramping. She denies vaginal bleeding or discharge. She states that she has been feeling baby move up until today but has not felt baby moving today. She denies fever/chills. She denies hematemesis or hematochezia. She denies any daily medications or any surgical history. TRAVEL OUTSIDE OF THE [place] IN LAST 30 DAYS: No - Related Data Allergies/Adverse Reactions: No Known Allergies Allergy (Verified 11/05/18 17:38) Past Medical History - General Information source: Patient - Social History Smoking Status: Former Smoker Chew tobacco use (# tins/day): No Frequency of alcohol use: None Drug Abuse: None Lives with: Family Family History: Reviewed & Not Pertinent Patient has suicidal ideation: No Patient has homicidal ideation: No - Past Medical History Cardiac Medical History: Denies: Hx Hypertension, Hx Pulmonary Embolism, Hx Heart Murmur Pulmonary Medical History: Denies: Hx Asthma, Hx Sleep Apnea, Hx Tuberculosis Neurological Medical History: Denies: Hx Seizures Endocrine Medical History: Denies: Hx Hyperthyroidism, Hx Hypothyroidism Renal/ Medical History: Denies: Hx Kidney Stones, Hx Ovarian Cysts, Hx Peritoneal Dialysis, Hx Pelvic Inflammatory Disease Malignancy Medical History: Denies: Hx Breast Cancer, Hx Cervical Cancer, Hx Ovarian Cancer GI Medical History: Denies: Hx Gastroesophageal Reflux Disease, Hx Hiatal Hernia, Hx Ulcer Musculoskeletal Medical History: Denies Hx Fibromyalgia Psychiatric Medical History: Denies: Hx Bipolar Disorder, Hx Depression, Hx Post Traumatic Stress Disorder, Hx Schizophrenia Traumatic Medical History: Denies: Hx Fractures Infectious Medical History: Denies: Hx HIV Past Surgical History: Reports: Hx Abdominal Surgery, Hx Section - x 2, Hx Cholecystectomy, Hx Gynecologic Surgery - eptopic - Immunizations Immunizations up to date: Yes Hx Diphtheria, Pertussis, Tetanus Vaccination: Yes Review of Systems - Review of Systems Constitutional: No symptoms reported EENT: No symptoms reported Cardiovascular: No symptoms reported Respiratory: No symptoms reported Gastrointestinal: See HPI Genitourinary: See HPI Female Genitourinary: No symptoms reported Musculoskeletal: No symptoms reported Skin: No symptoms reported Hematologic/Lymphatic: No symptoms reported Neurological/Psychological: No symptoms reported Physical Exam - Vital signs Vitals: Temp Pulse Resp BP Pulse Ox 99.2 F 87 16 120/69 100 11/05/18 17:45 11/05/18 17:45 11/05/18 17:45 11/05/18 17:45 11/05/18 17:45 - Notes Notes: GENERAL: Alert, interacts well. No acute distress. HEAD: Normocephalic, atraumatic. EYES: Pupils equal, round, and reactive to light. Extraocular movements intact. ENT: Oral mucosa moist, tongue midline. Oropharynx unremarkable. Airway patent. NECK: Full range of motion. Supple. Trachea midline. LUNGS: Clear to auscultation bilaterally, no wheezes, rales, or rhonchi. No respiratory distress. HEART: Regular rate and rhythm. No murmur ABDOMEN: Minimal generalized lower abdominal tenderness without guarding, rigidi ty, or rebound tenderness. Non-distended. Bowel sounds present in all 4 quadrants. GENITOURINARY: Deferred EXTREMITIES: Moves all 4 extremities spontaneously. No edema, normal radial and dorsalis pedis pulses bilaterally. No cyanosis. BACK: no cervical, thoracic, lumbar midline tenderness. No saddle anesthesia, normal distal neurovascular exam. NEUROLOGICAL: Alert and oriented x3. Normal speech. . PSYCH: Normal affect, normal mood. SKIN: Warm, dry, normal turgor. No rashes or lesions noted. Course - Re-evaluation Re-evalutation: Patient has a benign abdomen with questionable minimal lower abdominal tenderness without guarding. She is very well-appearing, she has moist mucous membranes, she was drinking fluids before I entered the room. She has not vomited during her time here. She has no current complaints of cramping, she denies vaginal bleeding. Her vital signs are unremarkable including no tachycardia. Patient given p.o. nausea medication for symptoms of nausea, had consumed more fluids on reexamination without vomiting. CBC unremarkable, chemistry unremarkable, urinalysis shows positive nitrates and some white blood cells but is otherwise unremarkable. heart tones checked and are 157. On reevaluation patient states she feels good, she is asking about going home. Discussion was made, decision was made to treat urinary tract infection with Keflex, nausea/vomiting with Reglan, based on her nausea/vomiting/diarrhea and a unremarkable evaluation I do suspect a viral illness. Discussed follow-up, discussed expectations, discussed return precautions. Patient states satisfaction and agreement with plan. - Vital Signs Vital signs: Temp Pulse Resp BP Pulse Ox 97.9 F 68 18 120/68 98 11/05/18 23:00 11/05/18 23:00 11/05/18 23:00 11/05/18 23:00 11/05/18 23:00 - Laboratory Result Diagrams: 11/05/18 18:34 11/05/18 18:34 Laboratory results interpreted by me: 11/05/18 11/05/18 11/05/18 18:34 18:34 18:34 Hgb 11.8 L Hct 34.8 L RDW 14.8 H Sodium 134.6 L Carbon Dioxide 21 L Creatinine 0.46 L Total Bilirubin 0.1 L AST 13 L Beta HCG, Quant 06766.00 H Urine Nitrite POSITIVE H Urine Ascorbic Acid 40 H Discharge - Discharge Clinical Impression: Vomiting and diarrhea Abdominal pain Qualifiers: Abdominal location: generalized Qualified Code(s): R10.84 - Generalized abdominal pain Condition: Stable Disposition: HOME, SELF-CARE Additional Instructions: Your evaluation is most consistent with a viral illness and also secondary developing urinary tract infection. Take Keflex as prescribed, take Reglan for nausea as prescribed, drink plenty fluids and rest. Symptoms should resolve with time. Because of the ongoing cough and postnasal drainage I suspect you have seasonal allergies, I recommend the antihistamine daily to help preventing cough eventually. Follow-up with primary care. Return if you worsen including difficulty breathing, severe abdominal pain, uncontrolled vomiting, spiking fever, or any other concerning or worsening symptoms. Prescriptions: Cephalexin Monohydrate [Keflex 500 mg Capsule] 500 mg PO BID #14 capsule Cetirizine HCl [Allergy Relief] 10 mg PO DAILY #30 tablet Metoclopramide HCl [Reglan] 5 mg PO ASDIR PRN #30 tablet PRN Reason: Referrals: TIFFANIE MARTIN CNM [NO LOCAL MD] - Follow up as needed
[2018-11-05] MEDS ORDERED: CEPHALEXIN 500 MG CAPSULE PO ONE (22:51)
[2018-11-05 23:46] VITALS: BP 120/68
== END 2018-11-05 23:00 | disposition home or self-care (01) ==
LOC: ER 17:36
DX: O21.9 Vomiting of pregnancy, unspecified (principal); O23.42 Unspecified infection of urinary tract in pregnancy, second trimester; O26.892 Other specified pregnancy related conditions, second trimester; R19.7 Diarrhea, unspecified; R10.84 Generalized abdominal pain; O36.8120 Decreased fetal movements, second trimester, not applicable or unspecified; Z3A.16 16 weeks gestation of pregnancy; Z87.891 Personal history of nicotine dependence
CPT/HCPCS: 99284; 36415; 87086; 84702; 83690; 85025; 87088; 80053; 81001; 87186; 76805; 93976; J3490

== ENCOUNTER 2019-01-03 16:33 | Outpatient (CLI) | payer MEDICAID ==
--- NOTE | 2019-01-03 17:45 | RADIOLOGY REPORT (SQ) ---
EXAM DESCRIPTION: U/S OB LIMITED COMPLETED DATE/TIME: 01/03/2019 5:32 pm REASON FOR STUDY: cervical length iup 24 weeks COMPARISON: None. TECHNIQUE: Limited transabdominal grayscale ultrasound for evaluation of specific requested obstetri alexis parameters. LIMITATIONS: None. FINDINGS: CERVICAL LENGTH: 2.9 cm Closed. LVP: 7.8 cm cm. FHR: 165 beats per minute. PRESENTATION: Cephalic. PLACENTA: Anterior ANATOMY: Not assessed OTHER: No other significant findings. IMPRESSION: LIMITED OBSTETRICAL ULTRASOUND WITH MEASURED PARAMETERS DELINEATED ABOVE. Trimester of : Second trimester - 13 weeks 1 day to 27 weeks 6 days. TECHNICAL DOCUMENTATION: JOB ID: [id number] [id number] 2010 [employer]- All Rights Reserved Reading location - IP/workstation name: [email or web address]
[2019-01-03 18:08] LABS: APPEARANCE,URINE CLOUDY; BILIRUBIN,URINE NEGATIVE (NEGATIVE); COLOR,URINE YELLOW; GLUCOSE, URINE NEGATIVE (NEGATIVE); KETONES,URINE 20 mg/dL (NEGATIVE); LEUKOCYTE ESTERASE,URINE MODERATE (NEGATIVE); NITRITE,URINE POSITIVE (NEGATIVE); PROTEIN,URINE 30 mg/dL (NEGATIVE); URINE SPECIFIC GRAVITY 1.024; UROBILINOGEN,URINE NEGATIVE mg/dL (<2.0)
[2019-01-03 18:22] LABS: URINE AMPHETAMINES SCREEN NEGATIVE; URINE BARBITURATES SCREEN NEGATIVE; URINE BENZODIAZEPINES SCREEN NEGATIVE; URINE COCAINE SCREEN NEGATIVE; URINE METHADONE SCREEN NEGATIVE; URINE PHENCYCLIDINE SCREEN NEGATIVE
[2019-01-03 18:27] LABS: URINE MARIJUANA (THC) SCREEN UNCONFIRMED POSITIVE
== END 2019-01-03 17:50 | disposition home or self-care (01) ==
LOC: LC 16:33
PROVIDERS: ATTEND Obstetrics & Gynecology Gynecology
PROC: 4A1HXCZ Monitoring of Products of Conception, Cardiac Rate, External Approach (ICD-10-PCS; principal; 2019-01-03)
DX: Z34.92 Encounter for supervision of normal pregnancy, unspecified, second trimester (principal)
CPT/HCPCS: 59899; 87086; 87088; 81001; 87186; 80307; 76815; G0480 ×2; 80349

== ENCOUNTER 2019-04-16 08:31 | Inpatient (IN) | payer MEDICAID ==
[2019-04-16 09:11] LABS: APPEARANCE,URINE SLIGHTLY-CLOUDY; BILIRUBIN,URINE NEGATIVE (NEGATIVE); COLOR,URINE YELLOW; GLUCOSE, URINE NEGATIVE (NEGATIVE); KETONES,URINE NEGATIVE (NEGATIVE); LEUKOCYTE ESTERASE,URINE TRACE (NEGATIVE); NITRITE,URINE NEGATIVE (NEGATIVE); PROTEIN,URINE NEGATIVE (NEGATIVE); UROBILINOGEN,URINE NEGATIVE mg/dL (<2.0)
[2019-04-16] MEDS ORDERED: IPRATROPIUM BROMIDE 0.02% NEB 0.5 MG/2.5 ML AMPUL NEB ONE ×2 (09:34→11:33)
[2019-04-16] MEDS ORDERED: ALBUTEROL SULFATE 0.083% NEB 2.5 MG/3 ML AMPUL NEB ONE ×2 (09:34→11:28)
[2019-04-16 09:39] LABS: URINE AMPHETAMINES SCREEN NEGATIVE; URINE BARBITURATES SCREEN NEGATIVE; URINE BENZODIAZEPINES SCREEN NEGATIVE; URINE COCAINE SCREEN NEGATIVE; URINE METHADONE SCREEN NEGATIVE; URINE PHENCYCLIDINE SCREEN NEGATIVE
[2019-04-16 09:48] LABS: URINE MARIJUANA (THC) SCREEN UNCONFIRMED POSITIVE
[2019-04-16] MEDS ORDERED: CEFAZOLIN SODIUM 2 GM in DEXTROSE 5%-WATER 50 ML IV PRN (09:50)
--- NOTE | 2019-04-16 09:59 | Admission Physical ---
Datetime Report Generated by CPN: 04/16/2019 09:58 CURRENT ADMISSION Chief Complaint: Other Chief Complaint Other: incisional pain and contractions Indication for Induction: Not Applicable Admit Impression : Term, Intrauterine Admit Plan: Admit to Unit; Initiate Section Protocol ALLERGIES Medication Allergies: No Known Allergies (01/03/2019) OBSTETRICAL HISTORY EDC: 04/23/2019 00:00 : 6 Para: 4 Term: 4 IAB: 1 Livin Cesareans: 2 PHYSICAL EXAM General: Normal HEENT: Normal Neurologic: Normal Thyroid: Deferred Heart: Normal Lungs: Normal Breast: Deferred Back: Normal Abdomen: Normal Genitourinary Exam: Deferred Extremities: Normal DTRs: Deferred Pelvic Type: Adequate Vital Signs: Reviewed VAGINAL EXAM Contraction Comments: irreg, painful, mild MEMBRANES Membranes: Intact FETUS A EGA: 39.0 Monitoring: External US FHR- Baseline: 130 Variability: Moderate 6-25bpm Accelerations: 15X15 Decelerations: None Admit Comment: with hx of one ectopic and one baby SIDS at 3 months. hx blood transfusion. GDM diet controlled. seen in office today with c/o contractions and incisional pain. sent for direct admission for repeat c/s. INFORMED CONSENT Assignment: Lynda Rolle MD Signature: with User ID: [email or web address] : with User ID: [email or web address]
[2019-04-16 10:27] LABS: ABSOLUTE EOSINOPHILS # (AUTO) 0.1 10^3/uL (0.0-0.6); ABSOLUTE LYMPHOCYTES (AUTO) 1.5 10^3/uL (0.5-4.7); ABSOLUTE MONOCYTES (AUTO) 0.6 10^3/uL (0.1-1.4); ABSOLUTE NEUT (AUTO) 3.8 10^3/uL (1.7-8.2); BASOPHILS % (AUTO) 0.3 % (0-2); EOSINOPHILS % (AUTO) 2.4 % (0-6); HEMATOCRIT 31.5 % (36.0-47.0); HEMOGLOBIN 10.5 g/dL (12.0-15.5); LYMPHOCYTES % (AUTO) 24.7 % (13-45); MEAN CORPUSCULAR HEMOGLOBIN 27.6 pg (27.0-33.4); MEAN CORPUSCULAR HGB CONC 33.2 g/dL (32.0-36.0); MEAN CORPUSCULAR VOLUME 83 fl (80-97); PLATELET COUNT 324 10^3/uL (150-450); RED BLOOD COUNT 3.79 10^6/uL (3.72-5.28); RED CELL DISTRIBUTION WIDTH 15.3 % (11.5-14.0); SEGMENTED NEUTROPHILS % (AUTO) 62.6 % (42-78); TOTAL CELLS COUNTED % (AUTO) 100 %; WHITE BLOOD COUNT 6.1 10^3/uL (4.0-10.5)
[2019-04-16] MEDS ORDERED: CITRIC ACID/SODIUM CITRATE ORAL SOLN 15 ML UDCUP ONE (10:48)
[2019-04-16] MEDS ORDERED: CEFAZOLIN 1 GM/D5W RTU 2 GM/100 ML RTUPB IV ONE (10:48)
[2019-04-16] MEDS ORDERED: OXYTOCIN 10 UNIT/ML VIAL ONE (11:01)
[2019-04-16] MEDS ORDERED: ONDANSETRON HCL INJ/PF 4 MG/2 ML SDV ONE (11:01)
[2019-04-16] MEDS ORDERED: OXYTOCIN/NORMAL SALINE 20 UNIT/1,000 ML RTUINJ ONE (11:01)
[2019-04-16] MEDS ORDERED: FENTANYL CITRATE INJ/PF 100 MCG/2 ML AMPUL ONE (11:10)
[2019-04-16] MEDS ORDERED: EPHEDRINE SULFATE INJ 50 MG/1 ML AMPULE ONE (11:13)
[2019-04-16] MEDS ORDERED: MEASLES,MUMPS&RUBELLA VACC/PF 0.5 ML VIAL SUBCUT PRN (13:02)
[2019-04-16] MEDS ORDERED: ACETAMINOPHEN 325 MG TABLET PO PRN (13:02)
[2019-04-16] MEDS ORDERED: PROMETHAZINE HCL INJ 25 MG/1 ML VIAL IV PRN (13:02)
[2019-04-16] MEDS ORDERED: OXYTOCIN/NORMAL SALINE 20 UNIT/1,000 ML RTUINJ IV PRN (13:02)
[2019-04-16] MEDS ORDERED: ACETAMINOPHEN 1,000 MG/100 ML RTUPB IV PRN (13:02)
[2019-04-16] MEDS ORDERED: SIMETHICONE 80 MG TAB.CHEW PO PRN (13:02)
[2019-04-16] MEDS ORDERED: MORPHINE SULFATE 10 MG/ML INJ IV PRN (13:02)
[2019-04-16] MEDS ORDERED: DIPH/PERTUSS(ACELL)/TETANUS VAC/PF 0.5 ML SYR (>=10YO) IM PRN (13:02)
[2019-04-16] MEDS ORDERED: OXYCODONE-ACETAMINOPHEN 5-325 MG TABLET PO PRN (13:02)
[2019-04-16] MEDS ORDERED: RINGERS SOLUTION,LACTATED 1,000 ML IV PRN (13:02)
--- NOTE | 2019-04-16 13:02 | Operative Report ---
Operative Report DATE OF SURGERY: 04/16/19 PREOPERATIVE DIAGNOSIS: IUP at 39 weeks previous x2 incisional scar p ain POSTOPERATIVE DIAGNOSIS: Same OPERATION: Repeat low transverse hysterotomy section SURGEON: MIGUEL HINES ANESTHESIA: Spinal COMPLICATIONS: None QUANTITATIVE BLOOD LOSS: 810 INTRAOPERATIVE FINDINGS: Absent right fallopian tube, male in cephalic presentation with Apgars of 8 and 9 PROCEDURE: PROCEDURE IN DETAIL: The patient was taken to the operating room, prepared and draped in a normal sterile fashion in a supine position with a leftward tilt. A transverse skin incision was made with a scalpel and carried through to the underlying layer of fascia with the same scalpel. The fascia was excised in the midline and extended laterally with Shayna. The fascia was then dissected from the rectus muscle sharply with Shayna and the rectus muscle was divided and the peritoneal cavity was entered sharply with the same Metzenbaum. With good visualization of the bladder and the uterus the bladder blade was inserted. The hysterotomy was nicked with a scalpel and extended laterally with surgeon finger fraction. The infant was then delivered atraumatically. The nose and mouth were suctioned with a suction bulb, the cord was clamped and cut and handed off to awaiting pediatricians. Cord blood was collected. The placenta was removed manually. The uterus was exteriorized and cleared of clots and debris. The hysterotomy was closed with 0 Monocryl in a running, locked fashion. A second layer of the same suture was used to imbricate to ensure hemostasis. The uterus was returned to the abdomen and peritoneal cavity was cleared of clots and debris. The rectus muscle and peritoneum were repaired with mattress stitch of 2-0 Chromic. The fascia was closed with 0-Vicryl. The subcutaneous layer was closed with plain catgut and the skin was closed with 4-0 Vicryl. The patient tolerated the procedure well. Sponge, lap, and needle counts correct x2 and the patient was taken to recovery in stable condition.
[2019-04-16] MEDS ORDERED: KETOROLAC TROMETHAMINE INJ/PF 30 MG/1 ML SDV ONE (14:08)
[2019-04-16] MEDS: KETOROLAC TROMETHAMINE INJ/PF 30 MG/1 ML SDV IV SCH ×2 (14:11→22:17)
[2019-04-16] MEDS ORDERED: ACETAMINOPHEN 1,000 MG/100 ML RTUPB IV ONE (14:33)
[2019-04-16] MEDS: DOCUSATE SODIUM 100 MG CAPSULE PO SCH (18:20)
[2019-04-16] MEDS: OXYCODONE-ACETAMINOPHEN 5-325 MG TABLET PO PRN ×2 (18:20→22:20)
[2019-04-16 19:15] LABS: APPEARANCE,URINE CLEAR; BILIRUBIN,URINE NEGATIVE (NEGATIVE); COLOR,URINE YELLOW; GLUCOSE, URINE NEGATIVE (NEGATIVE); KETONES,URINE NEGATIVE (NEGATIVE); LEUKOCYTE ESTERASE,URINE NEGATIVE (NEGATIVE); NITRITE,URINE NEGATIVE (NEGATIVE); PROTEIN,URINE NEGATIVE (NEGATIVE); UROBILINOGEN,URINE NEGATIVE mg/dL (<2.0)
[2019-04-16] MEDS: IBUPROFEN 800 MG TABLET PO SCH (20:56)
[2019-04-17] MEDS: IBUPROFEN 800 MG TABLET PO SCH ×4 (00:04→17:23)
[2019-04-17] MEDS: DOCUSATE SODIUM 100 MG CAPSULE PO SCH ×2 (09:24→17:23)
[2019-04-17] MEDS: PRENATAL VITAMIN W DHA CAPSULE PO SCH (09:24)
[2019-04-17] MEDS: OXYCODONE-ACETAMINOPHEN 5-325 MG TABLET PO PRN ×4 (09:24→22:32)
[2019-04-17 10:29] LABS: HEMATOCRIT 28.3 % (36.0-47.0); HEMOGLOBIN 9.3 g/dL (12.0-15.5); MEAN CORPUSCULAR HEMOGLOBIN 27.4 pg (27.0-33.4); MEAN CORPUSCULAR HGB CONC 32.8 g/dL (32.0-36.0); MEAN CORPUSCULAR VOLUME 84 fl (80-97); PLATELET COUNT 305 10^3/uL (150-450); RED BLOOD COUNT 3.39 10^6/uL (3.72-5.28); RED CELL DISTRIBUTION WIDTH 15.4 % (11.5-14.0); WHITE BLOOD COUNT 7.8 10^3/uL (4.0-10.5)
--- NOTE | 2019-04-17 16:23 | PDOC PROGRESS REPORT ---
Subjective-OB Progress Note for:: 04/17/19 Subjective: 29yo G6 now P5L4 s/p repeat ppd1. Ambulating and voiding without difficulty. Reports pain well controlled with medication. Denies any concerns at this time Physical Exam (OB) Vital Signs: Temp Pulse Resp BP Pulse Ox 98.2 F 78 14 96/51 L 98 04/17/19 11:25 04/17/19 11:25 04/17/19 11:25 04/17/19 11:25 04/17/19 11:25 Intake & Output 04/16/19 04/17/19 04/18/19 06:59 06:59 06:59 Output Total 1250 Balance -1250 Weight 96 kg - General General Appearance: Appears well In distress: None - PIH/Pre-Eclampsia DTR's: 2 + Clonus: Negative Headache: Absent Epigastric Pain: No Visual Changes: No - Dressing Removed: No Incision: Dressing - Lochia Lochia Amount: Scant < 10 ml Lochia Color: Rubra/Red - Abdomen Description: Tender, Soft Hernia Present: No Fundal Description: Firm, Midline Fundal Height: u/u - u/2 - Respiratory Respiratory Status: No respiratory distress - Psychological Associated symptoms: Normal affect, Normal mood Objective-Diagnostic Laboratory: 04/17/19 10:05 04/16/19 04/17/19 08:49 10:05 WBC 7.8 RBC 3.39 L Hgb 9.3 L Hct 28.3 L MCV 84 MCH 27.4 MCHC 32.8 RDW 15.4 H Plt Count 305 Urine Color YELLOW Urine Appearance CLEAR Urine pH 9.0 Ur Specific [place] 1.010 Urine Protein NEGATIVE Urine Glucose (UA) NEGATIVE Urine Ketones NEGATIVE Urine Blood NEGATIVE Urine Nitrite NEGATIVE Ur Leukocyte Esterase NEGATIVE Urine WBC (Auto) 8 Urine RBC (Auto) 0 Assessment and Plan(PN) - Assessment and Plan (1) Drug use affecting Qualifiers: Trimester: unspecified trimester Qualified Code(s): O99.320 - Drug use complicating , unspecified trimester Is this a current diagnosis for this admission?: Yes Plan: discharge planning consult placed (2) Gestational diabetes mellitus (GDM) affecting Is this a current diagnosis for this admission?: Yes Plan: delivered, will obtain fasting value at pp visit (3) Anemia complicating , third trimester Is this a current diagnosis for this admission?: Yes Plan: Increase dietary iron and FeSO4 (4) Qualifiers: Weeks of gestation: 39 weeks Qualified Code(s): Z3A.39 - 39 weeks gestation of Is this a current diagnosis for this admission?: Yes Plan: delivered (5) Smoker Is this a current diagnosis for this admission?: Yes Plan: cessation encouraged (6) S/P repeat low transverse Is this a current diagnosis for this admission?: Yes Plan: routine pp care - Time Spent with Patient Time with patient: Less than 15 minutes Smoking Education Provided: Over 3 minutes Medications reviewed and adjusted accordingly: Yes - Disposition Anticipated Discharge: Home Within: within 24 hours
[2019-04-18] MEDS: IBUPROFEN 800 MG TABLET PO SCH ×3 (00:43→11:28)
[2019-04-18] MEDS: OXYCODONE-ACETAMINOPHEN 5-325 MG TABLET PO PRN ×3 (05:32→15:13)
--- NOTE | 2019-04-18 09:33 | PDOC PROGRESS REPORT ---
Subjective-OB Progress Note for:: 04/18/19 Subjective: laying in bed with mask on, coughing, no chest pain or SOB, child in room, c/o of eyelid swollen, incision hurting from coughing Physical Exam (OB) Vital Signs: Temp Pulse Resp BP Pulse Ox 98.3 F 78 18 123/81 100 04/18/19 07:34 04/18/19 07:34 04/18/19 07:34 04/18/19 07:34 04/18/19 07:34 Intake & Output 04/17/19 04/18/19 04/19/19 06:59 06:59 06:59 Intake Total 300 Output Total 1250 Balance -1250 300 Weight 96 kg - PIH/Pre-Eclampsia DTR's: 2 + Clonus: Negative Headache: Absent Epigastric Pain: No Visual Changes: No - Dressing Removed: No - opsite, sm. drain Incision: Dressing, Draining - Bilateral Tubal Ligation Dressing Removed: No Site: Dressing - Lochia Lochia Amount: Small 10-25 ml Lochia Color: Rubra/Red - Abdomen Description: Soft, Round Hernia Present: No Fundal Description: Firm, Midline Fundal Height: u/u - u/2 Objective-Diagnostic Laboratory: 04/17/19 10:05 04/17/19 10:05 WBC 7.8 RBC 3.39 L Hgb 9.3 L Hct 28.3 L MCV 84 MCH 27.4 MCHC 32.8 RDW 15.4 H Plt Count 305 Assessment and Plan(PN) - Assessment and Plan (1) Gestational diabetes mellitus (GDM) affecting Is this a current diagnosis for this admission?: Yes (2) Anemia complicating , third trimester Is this a current diagnosis for this admission?: Yes (3) S/P repeat low transverse Is this a current diagnosis for this admission?: Yes (4) Smoker Is this a current diagnosis for this admission?: Yes - Time Spent with Patient Time with patient: Less than 15 minutes Smoking Education Provided: Over 3 minutes Medications reviewed and adjusted accordingly: Yes - Disposition Anticipated Discharge: Home Within: within 24 hours
[2019-04-18] MEDS ORDERED: CETIRIZINE 10 MG TABLET PO SCH (10:00)
[2019-04-18] MEDS: PRENATAL VITAMIN W DHA CAPSULE PO SCH (10:31)
[2019-04-18] MEDS: DOCUSATE SODIUM 100 MG CAPSULE PO SCH (10:31)
--- NOTE | 2019-04-18 11:32 | PDOC DISCHARGE SUMMARY ---
Impression - Admit/DC Date/PCP Admission Date/Primary Care Provider: 04/16/19 08:56 LEEANNE HORNER MD Discharge Date: 04/18/19 - Discharge Diagnosis (1) Gestational diabetes mellitus (GDM) affecting Is this a current diagnosis for this admission?: Yes (2) Anemia complicating , third trimester Is this a current diagnosis for this admission?: Yes (3) S/P repeat low transverse Is this a current diagnosis for this admission?: Yes (4) Smoker Is this a current diagnosis for this admission?: Yes - Additional Information Discharge Diet: As Tolerated, Regular Discharge Activity: Activity As Tolerated, No Driving, No Lifting Over 10 Pounds, No Lifting/Push/Pulling, Pelvic Rest Referrals: MIGUEL HINES MD [ACTIVE STAFF] - 04/24/19 10:30 am Prescriptions: Oxycodone HCl/Acetaminophen [Percocet 5-325 mg Tablet] 1 tab PO Q4HP PRN #20 tablet PRN Reason: Cephalexin Monohydrate [Keflex 500 mg Capsule] 500 mg PO Q8 #20 capsule Ibuprofen [Motrin 800 mg Tablet] 800 mg PO Q6 #30 tablet Home Medications: Vit/Dha [ Multi + Dha Capsule] 1 cap PO DAILY 01/03/19 Cephalexin Monohydrate [Keflex 500 mg Capsule] 500 mg PO Q8 #20 capsule 04/18/19 Cetirizine HCl [Zyrtec 10 mg Tablet] 10 mg PO DAILY tablet 04/18/19 Ibuprofen [Motrin 800 mg Tablet] 800 mg PO Q6 #30 tablet 04/18/19 Oxycodone HCl/Acetaminophen [Percocet 5-325 mg Tablet] 1 tab PO Q4HP PRN #20 tablet 04/18/19 HPI Gestational Age: 38 Reason(s) for Admission: Ceasarean Section-Repeat, Gestional Diabetes Procedures: Ultrasound Intrapartum Procedure(s): : Low Cervical, Transverse Hospital Course Hospital Course: routine, coughing, waiting for chest xray results Results Laboratory Results: WBC 7.8 10^3/uL (4.0-10.5) 04/17/19 10:05 RBC 3.39 10^6/uL (3.72-5.28) L 04/17/19 10:05 Hgb 9.3 g/dL (12.0-15.5) L 04/17/19 10:05 Hct 28.3 % (36.0-47.0) L 04/17/19 10:05 MCV 84 fl (80-97) 04/17/19 10:05 MCH 27.4 pg (27.0-33.4) 04/17/19 10:05 MCHC 32.8 g/dL (32.0-36.0) 04/17/19 10:05 RDW 15.4 % (11.5-14.0) H 04/17/19 10:05 Plt Count 305 10^3/uL (150-450) 04/17/19 10:05 Lymph % (Auto) 24.7 % (13-45) 04/16/19 10:10 Scott % (Auto) 10.0 % (3-13) 04/16/19 10:10 Eos % (Auto) 2.4 % (0-6) 04/16/19 10:10 Baso % (Auto) 0.3 % (0-2) 04/16/19 10:10 Absolute Neuts (auto) 3.8 10^3/uL (1.7-8.2) 04/16/19 10:10 Absolute Lymphs (auto) 1.5 10^3/uL (0.5-4.7) 04/16/19 10:10 Absolute Monos (auto) 0.6 10^3/uL (0.1-1.4) 04/16/19 10:10 Absolute Eos (auto) 0.1 10^3/uL (0.0-0.6) 04/16/19 10:10 Absolute Basos (auto) 0.0 10^3/uL (0.0-0.2) 04/16/19 10:10 Seg Neutrophils % 62.6 % (42-78) 04/16/19 10:10 Urine Color YELLOW 04/16/19 08:49 Urine Appearance CLEAR 04/16/19 08:49 Urine pH 9.0 (5.0-9.0) 04/16/19 08:49 Ur Specific [place] 1.010 04/16/19 08:49 Urine Protein NEGATIVE mg/dL (NEGATIVE) 04/16/19 08:49 Urine Glucose (UA) NEGATIVE mg/dL (NEGATIVE) 04/16/19 08:49 Urine Ketones NEGATIVE mg/dL (NEGATIVE) 04/16/19 08:49 Urine Blood NEGATIVE (NEGATIVE) 04/16/19 08:49 Urine Nitrite NEGATIVE (NEGATIVE) 04/16/19 08:49 Urine Bilirubin NEGATIVE (NEGATIVE) 04/16/19 08:49 Urine Urobilinogen NEGATIVE mg/dL (<2.0) 04/16/19 08:49 Ur Leukocyte Esterase NEGATIVE (NEGATIVE) 04/16/19 08:49 Urine WBC (Auto) 8 /HPF 04/16/19 08:49 Urine RBC (Auto) 0 /HPF 04/16/19 08:49 Urine Bacteria (Auto) TRACE /HPF 04/16/19 08:49 Squamous Epi Cells Auto 1 /HPF 04/16/19 08:49 Urine Mucus (Auto) RARE /LPF 04/16/19 08:49 Urine Ascorbic Acid NEGATIVE (NEGATIVE) 04/16/19 08:49 Urine Opiates Screen NEGATIVE 04/16/19 08:45 Urine Methadone Screen NEGATIVE 04/16/19 08:45 Ur Barbiturates Screen NEGATIVE 04/16/19 08:45 Ur Phencyclidine Scrn NEGATIVE 04/16/19 08:45 Ur Amphetamines Screen NEGATIVE 04/16/19 08:45 U Benzodiazepines Scrn NEGATIVE 04/16/19 08:45 Urine Cocaine Screen NEGATIVE 04/16/19 08:45 U Marijuana (THC) Screen UNCONFIRMED POSITIVE 04/16/19 08:45 RPR NONREACTIVE (NONREACTIVE) 04/16/19 10:10 Blood Type O POSITIVE 04/16/19 10:10 Antibody Screen NEGATIVE 04/16/19 10:10 Plan Health Concerns: Cough, nasal congestion Plan of Treatment: janett zelaya Goals: cough to stop, reviewed S&S to report Time Spent: Less than 30 Minutes
--- NOTE | 2019-04-18 11:52 | RADIOLOGY REPORT (SQ) ---
EXAM DESCRIPTION: CHEST 2 VIEWS COMPLETED DATE/TIME: 04/18/2019 10:20 am REASON FOR STUDY: POD #1 . coughing COMPARISON: 05/22/2014 EXAM PARAMETERS: NUMBER OF VIEWS: two views TECHNIQUE: Digital Frontal and Lateral radiographic views of the chest acquired. RADIATION DOSE: NA LIMITATIONS: none FINDINGS: LUNGS AND PLEURA: No opacities, masses or pneumothorax. No pleural effusion. MEDIASTINUM AND HILAR STRUCTURES: No masses or contour abnormalities. HEART AND VASCULAR STRUCTURES: Heart normal size. No evidence for failure. BONES: No acute findings. HARDWARE: None in the chest. OTHER: No other significant finding. IMPRESSION: NO ACUTE RADIOGRAPHIC FINDING IN THE CHEST. TECHNICAL DOCUMENTATION: JOB ID: [id number] [email or web address]- All Rights Reserved Reading location - IP/workstation name: [email or web address]
[2019-04-18 13:03] VITALS: BP 130/66
[2019-04-18] MEDS ORDERED: CEPHALEXIN 500 MG CAPSULE PO SCH (14:00)
== END 2019-04-18 16:30 | disposition home or self-care (01) | DRG 787 ==
LOC: LC 08:31 → LR 08:56 → 2S 15:10
PROVIDERS: ADMIT Obstetrics & Gynecology; ATTEND Obstetrics & Gynecology
PROC: 10D00Z1 Extraction of Products of Conception, Low, Open Approach (ICD-10-PCS; principal; 2019-04-16)
DX: O34.211 Maternal care for low transverse scar from previous cesarean delivery (principal); O99.323 Drug use complicating pregnancy, third trimester; O24.420 Gestational diabetes mellitus in childbirth, diet controlled; O99.02 Anemia complicating childbirth; D64.9 Anemia, unspecified; O99.334 Smoking (tobacco) complicating childbirth; F19.90 Other psychoactive substance use, unspecified, uncomplicated; F17.210 Nicotine dependence, cigarettes, uncomplicated; Z3A.39 39 weeks gestation of pregnancy; Z37.0 Single live birth
CPT/HCPCS: 1961; 36415; 71046; 80307; 81001; 81005; 85025; 85027; 86592; 86850; 86900; 86901; 94799; J0131; J0690; J1885; J2270; J2405; J2590; J3010; J3490; J7120

== ENCOUNTER 2019-09-03 10:28 | Emergency (ER) | payer OTHER ==
[2019-09-03 10:56] VITALS: BP 146/85
[2019-09-03] MEDS ORDERED: IBUPROFEN 800 MG TABLET PO ONE (11:49)
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
== END 2019-09-03 13:59 | disposition home or self-care (01) ==
LOC: ER 10:28
DX: S16.1XXA Strain of muscle, fascia and tendon at neck level, initial encounter (principal); M25.512 Pain in left shoulder; M54.5 Low back pain; V59.49XA Driver of pick-up truck or van injured in collision with other motor vehicles in traffic accident, initial encounter; Y92.481 Parking lot as the place of occurrence of the external cause; F17.200 Nicotine dependence, unspecified, uncomplicated
CPT/HCPCS: 72050; 99283

== ENCOUNTER 2019-09-09 10:03 | Emergency (ER) | payer OTHER ==
[2019-09-09] MEDS ORDERED: LIDOCAINE 5% (700 MG) TRANSDERMAL ADH..PATCH TP ONE (10:35)
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
[2019-09-09 12:12] VITALS: BP 134/88
== END 2019-09-09 12:11 | disposition home or self-care (01) ==
LOC: ER 10:03
DX: S46.812A Strain of other muscles, fascia and tendons at shoulder and upper arm level, left arm, initial encounter (principal); S43.102A Unspecified dislocation of left acromioclavicular joint, initial encounter; M62.830 Muscle spasm of back; M25.512 Pain in left shoulder; V87.7XXA Person injured in collision between other specified motor vehicles (traffic), initial encounter
CPT/HCPCS: 99283

== ENCOUNTER 2020-04-13 08:12 | Emergency (ER) | payer MEDICAID, OTHER ==
--- NOTE | 2020-04-13 09:18 | ER Document Report ---
ED GI/ - General Chief Complaint: Abdominal Pain Stated Complaint: UPPER ABDOMINAL PAIN Time Seen by Provider: 04/13/20 09:17 Primary Care Provider: ALEK MACDONALD MD [ACTIVE STAFF] - Follow up as needed Mode of Arrival: Ambulatory Information source: Patient Notes: Otherwise healthy 30-year-old female presented emergency department chief complaint of abdominal pain. Patient reports diagnosed with gallbladder issues about 18 months ago. She states that the time she was . She reports every morning she wakes up with abdominal pain in the right upper quadrant with nausea. She denies vomiting or diarrhea. She has not had fever or chills. She states pain has been worsening over the last few weeks. TRAVEL OUTSIDE OF THE [place] IN LAST 30 DAYS: No - Related Data Allergies/Adverse Reactions: No Known Allergies Allergy (Verified 04/13/20 08:32) Past Medical History - General Information source: Patient - Social History Smoking Status: Former Smoker Chew tobacco use (# tins/day): No Frequency of alcohol use: None Drug Abuse: None Family History: Reviewed & Not Pertinent Patient has homicidal ideation: No Renal/ Medical History: Denies: Hx Kidney Stones Past Surgical History: Reports: Hx Abdominal Surgery, Hx Section - x 2, Hx Cholecystectomy, Hx Gynecologic Surgery - eptopic - Immunizations Immunizations up to date: Yes Hx Diphtheria, Pertussis, Tetanus Vaccination: Yes Review of Systems - Review of Systems Constitutional: No symptoms reported EENT: No symptoms reported Cardiovascular: No symptoms reported Respiratory: No symptoms reported Gastrointestinal: Abdominal pain, Nausea Genitourinary: No symptoms reported Female Genitourinary: No symptoms reported Musculoskeletal: No symptoms reported Skin: No symptoms reported Hematologic/Lymphatic: No symptoms reported Neurological/Psychological: No symptoms reported Physical Exam - Vital signs Vitals: Temp Pulse Resp BP Pulse Ox 98.2 F 65 18 106/66 100 04/13/20 08:19 04/13/20 08:19 04/13/20 08:19 04/13/20 08:19 04/13/20 08:19 - Notes Notes: PHYSICAL EXAMINATION: GENERAL: Well-appearing, well-nourished and appears to be in pain. HEAD: Atraumatic, normocephalic. EYES: Pupils equal round and reactive to light, extraocular movements intact, conjunctiva are normal. ENT: Nares patent, oropharynx clear without exudates. Moist mucous membranes. NECK: Normal range of motion, supple without lymphadenopathy LUNGS: Breath sounds clear to auscultation bilaterally and equal. No wheezes rales or rhonchi. HEART: Regular rate and rhythm without murmurs ABDOMEN: Soft, right upper quadrant tenderness, nondistended abdomen. No guarding, no rebound. No masses appreciated. Female : deferred Musculoskeletal: Normal range of motion, no pitting or edema. No cyanosis. NEUROLOGICAL: Cranial nerves grossly intact. Normal speech, normal gait. Normal sensory, motor exams PSYCH: Tearful. SKIN: Warm, Dry, normal turgor, no rashes or lesions noted. Course - Re-evaluation Re-evalutation: Laboratory 04/13/20 04/13/20 04/13/20 09:15 09:15 09:15 WBC 7.0 RBC 4.27 Hgb 12.4 Hct 37.5 MCV 88 MCH 29.1 MCHC 33.1 RDW 16.3 H Plt Count 263 Lymph % (Auto) 31.4 [place] % (Auto) 7.0 Eos % (Auto) 3.6 Baso % (Auto) 0.6 Absolute Neuts (auto) 4.0 Absolute Lymphs (auto) 2.2 Absolute Monos (auto) 0.5 Absolute Eos (auto) 0.2 Absolute Basos (auto) 0.0 Seg Neutrophils % 57.4 Sodium Cancelled Potassium Cancelled Chloride Cancelled Carbon Dioxide Cancelled Anion Gap Cancelled BUN Cancelled Creatinine Cancelled Est GFR ( Amer) Cancelled Est GFR (Non-Af Amer) Cancelled Est GFR (MDRD) Non-Af Cancelled Glucose Cancelled Calcium Cancelled Total Bilirubin Cancelled Direct Bilirubin Cancelled Neonat Total Bilirubin Cancelled Neonat Direct Bilirubin Cancelled Neonat Indirect Bili Cancelled AST Cancelled ALT Cancelled Alkaline Phosphatase Cancelled Total Protein Cancelled Albumin Cancelled Lipase Cancelled EGFR Cancelled Urine Color YELLOW Urine Appearance SLIGHTLY-CLOUDY Urine pH 5.0 Ur Specific [place] 1.032 Urine Protein NEGATIVE Urine Glucose (UA) NEGATIVE Urine Ketones NEGATIVE Urine Blood SMALL H Urine Nitrite NEGATIVE Urine Bilirubin NEGATIVE Urine Urobilinogen 2.0 H Ur Leukocyte Esterase MODERATE H Urine WBC (Auto) 8 Urine RBC (Auto) 7 Squamous Epi Cells Auto 10 Urine Mucus (Auto) MOD Urine Ascorbic Acid NEGATIVE Urine HCG, Qual NEGATIVE 04/13/20 10:52 WBC RBC Hgb Hct MCV MCH MCHC RDW Plt Count Lymph % (Auto) [place] % (Auto) Eos % (Auto) Baso % (Auto) Absolute Neuts (auto) Absolute Lymphs (auto) Absolute Monos (auto) Absolute Eos (auto) Absolute Basos (auto) Seg Neutrophils % Sodium 138.0 Potassium 4.5 Chloride 111 H Carbon Dioxide 19 L Anion Gap 8 BUN 15 Creatinine 0.58 Est GFR ( Amer) > 60 Est GFR (Non-Af Amer) Est GFR (MDRD) Non-Af > 60 Glucose 89 Calcium 8.9 Total Bilirubin 0.2 Direct Bilirubin 0.2 Neonat Total Bilirubin Not Reportable Neonat Direct Bilirubin Not Reportable Neonat Indirect Bili Not Reportable AST 91 H ALT 53 H Alkaline Phosphatase 106 Total Protein 7.4 Albumin 3.9 Lipase 60.8 EGFR Urine Color Urine Appearance Urine pH Ur Specific [place] Urine Protein Urine Glucose (UA) Urine Ketones Urine Blood Urine Nitrite Urine Bilirubin Urine Urobilinogen Ur Leukocyte Esterase Urine WBC (Auto) Urine RBC (Auto) Squamous Epi Cells Auto Urine Mucus (Auto) Urine Ascorbic Acid Urine HCG, Qual Abdomen Ultrasound 04/13/20 09:17 IMPRESSION: Cholelithiasis. No sonographic evidence of acute cholecystitis. Abdomen/Pelvis CT 04/13/20 11:02 IMPRESSION: No acute intra-abdominal abnormality. - Vital Signs Vital signs: Temp Pulse Resp BP Pulse Ox 98.4 F 70 18 115/70 99 04/13/20 12:39 04/13/20 12:39 04/13/20 12:39 04/13/20 12:39 04/13/20 12:39 - Laboratory Result Diagrams: 04/13/20 09:15 04/13/20 10:52 Laboratory results interpreted by me: 04/13/20 04/13/20 04/13/20 09:15 09:15 10:52 RDW 16.3 H Chloride 111 H Carbon Dioxide 19 L AST 91 H ALT 53 H Urine Blood SMALL H Urine Urobilinogen 2.0 H Ur Leukocyte Esterase MODERATE H Discharge - Discharge Clinical Impression: Abdominal pain Qualifiers: Abdominal location: unspecified location Qualified Code(s): R10.9 - Unspecified abdominal pain Condition: Stable Disposition: HOME, SELF-CARE Additional Instructions: You have been seen in the Emergency Department (ED) for abdominal pain. Your evaluation did not identify a clear cause of your symptoms but was generally reassuring. Please follow up with your doctor as soon as possible regarding today's emergent visit and the symptoms that are bothering you. Return to the ED if your abdominal pain worsens or fails to improve, you develop bloody vomiting, bloody diarrhea, you are unable to tolerate fluids due to vomiting, fever greater than 101, or other symptoms that concern you. Please follow-up with gastroenterology as discussed. Prescriptions: Dicyclomine HCl [Bentyl 20 mg Tablet] 20 mg PO QID #40 tablet Sucralfate [Carafate 1 gm Tablet] 1 gm PO ACHS #60 tablet Famotidine [Pepcid 20 mg Tablet] 20 mg PO DAILY #10 tablet Forms: Return to Work Referrals: ALEK MACDONALD MD [ACTIVE STAFF] - Follow up as needed
[2020-04-13] MEDS ORDERED: MORPHINE SULFATE 10 MG/ML INJ IV ONE (09:23)
[2020-04-13] MEDS ORDERED: ONDANSETRON HCL INJ/PF 4 MG/2 ML SDV IV ONE (09:23)
[2020-04-13 09:52] LABS: ABSOLUTE EOSINOPHILS # (AUTO) 0.2 10^3/uL (0.0-0.6); ABSOLUTE LYMPHOCYTES (AUTO) 2.2 10^3/uL (0.5-4.7); ABSOLUTE MONOCYTES (AUTO) 0.5 10^3/uL (0.1-1.4); BASOPHILS % (AUTO) 0.6 % (0-2); EOSINOPHILS % (AUTO) 3.6 % (0-6); HEMATOCRIT 37.5 % (36.0-47.0); HEMOGLOBIN 12.4 g/dL (12.0-15.5); LYMPHOCYTES % (AUTO) 31.4 % (13-45); MEAN CORPUSCULAR HEMOGLOBIN 29.1 pg (27.0-33.4); MEAN CORPUSCULAR HGB CONC 33.1 g/dL (32.0-36.0); MEAN CORPUSCULAR VOLUME 88 fl (80-97); PLATELET COUNT 263 10^3/uL (150-450); RED BLOOD COUNT 4.27 10^6/uL (3.72-5.28); RED CELL DISTRIBUTION WIDTH 16.3 % (11.5-14.0); SEGMENTED NEUTROPHILS % (AUTO) 57.4 % (42-78); TOTAL CELLS COUNTED % (AUTO) 100 %
[2020-04-13 09:56] LABS: APPEARANCE,URINE SLIGHTLY-CLOUDY; BILIRUBIN,URINE NEGATIVE (NEGATIVE); COLOR,URINE YELLOW; GLUCOSE, URINE NEGATIVE (NEGATIVE); KETONES,URINE NEGATIVE (NEGATIVE); LEUKOCYTE ESTERASE,URINE MODERATE (NEGATIVE); NITRITE,URINE NEGATIVE (NEGATIVE); PROTEIN,URINE NEGATIVE (NEGATIVE); URINE SPECIFIC GRAVITY 1.032
--- NOTE | 2020-04-13 10:38 | RADIOLOGY REPORT (SQ) ---
EXAM DESCRIPTION: U/S ABDOMEN LIMITED W/O DOP IMAGES COMPLETED DATE/TIME: 04/13/2020 9:24 am REASON FOR STUDY: RUQ pain COMPARISON: None. TECHNIQUE: Dynamic and static grayscale images acquired of the abdomen and recorded on PACS. Additio nal selected color Doppler and spectral images recorded. LIMITATIONS: None. FINDINGS: PANCREAS: No masses. Visualized pancreatic duct normal caliber. LIVER: No masses. Echotexture normal. LIVER VASCULATURE: Normal directional flow of the main portal vein and hepatic veins. GALLBLADDER: Gallstone(s). No pericholecystic fluid. No wall thickening. ULTRASOUND-DETECTED NICHOLS'S SIGN: Negative. INTRAHEPATIC DUCTS AND COMMON DUCT: CBD and intrahepatic ducts normal caliber. No filling defects. INFERIOR VENA CAVA: Normal flow. AORTA: No aneurysm. RIGHT KIDNEY: Normal size. Normal echogenicity. No solid or suspicious masses. No hydronephrosis. No calcifications. PERITONEAL AND RIGHT PLEURAL SPACE: No ascites or effusions. OTHER: No other significant findings. IMPRESSION: Cholelithiasis. No sonographic evidence of acute cholecystitis. TECHNICAL DOCUMENTATION: JOB ID: [id number] 2010 [employer] All Rights Reserved Reading location - IP/workstation name: [email or web address]
[2020-04-13 11:30] LABS: ALBUMIN 3.9 g/dL (3.5-5.0); ALKALINE PHOSPHATASE 106 U/L (38-126); ANION GAP 8 (5-19); ASPARTATE AMINO TRANSFERASE 91 U/L (14-36); BILIRUBIN,DIRECT 0.2 mg/dL (0.0-0.4); BILIRUBIN,TOTAL 0.2 mg/dL (0.2-1.3); BLOOD UREA NITROGEN 15 mg/dL (7-20); CALCIUM 8.9 mg/dL (8.4-10.2); CARBON DIOXIDE 19 mmol/L (22-30); CHLORIDE 111 mmol/L (98-107); GLUCOSE 89 mg/dL (75-110); POTASSIUM 4.5 mmol/L (3.6-5.0); TOTAL PROTEIN 7.4 g/dL (6.3-8.2)
--- NOTE | 2020-04-13 12:22 | RADIOLOGY REPORT (SQ) ---
EXAM DESCRIPTION: CT ABD/PELVIS WITH IV ONLY IMAGES COMPLETED DATE/TIME: 04/13/2020 12:09 pm REASON FOR STUDY: abdominal pain COMPARISON: None. TECHNIQUE: CT scan of the abdomen and pelvis performed using helical scanning technique with dynamic intravenous contrast injection. No oral contrast. Images reviewed with lung, soft tissue, and bone windows. Reconstructed coronal and sagittal MPR images reviewed. Delayed images for evaluation of the urinary system also acquired. All images stored on PACS. All CT scanners at this facility use dose modulation, iterative reconstruction, and/or weight based d osing when appropriate to reduce radiation dose to as low as reasonably achievable (ALARA). [facility]: Dose Right [facility]: CareDose [facility]: Dose Right [facility]: Teradose 4D [facility]: Simplify CONTRAST TYPE AND DOSE: Contrast/concentration: Isovue 350.00 mmol/ml; Total Contrast Delivered: 100 .0 ml; Total Saline Delivered: 67.9 ml RENAL FUNCTION: GFR > 60. RADIATION DOSE: CT Rad equipment meets quality standard of care and radiation dose reduction techniq ues were employed. CTDIvol: NaN - NaN mGy. DLP: 0 mGy-cm. LIMITATIONS: None. FINDINGS: LOWER CHEST: No acute findings. LIVER: The morphology of the liver is noncirrhotic. The portal veins are patent. There is no hepati c mass. SPLEEN: Accessory splenule anterior to the spleen that measures 13 x 13 mm. There is no splenomegaly or splenic mass. PANCREAS: No acute gross abnormality of the pancreas. GALLBLADDER: No abnormality of the gallbladder that is apparent on CT. ADRENAL GLANDS: No mass or asymmetry. RIGHT KIDNEY AND URETER: No solid mass, hydronephrosis, nephrolithiasis, hydroureter or ureterolithia sis. LEFT KIDNEY AND URETER: No solid mass, hydronephrosis, nephrolithiasis, hydroureter or ureterolithias is. AORTA AND VESSELS: No aneurysm or dissection of the abdominal aorta. The abdominopelvic vasculature is patent. RETROPERITONEUM: No retroperitoneal adenopathy, hemorrhage or mass. BOWEL AND PERITONEAL CAVITY: No bowel obstruction, bowel wall thickening or pericolonic/ perienteric inflammation. There is no mesenteric adenopathy, free intraperitoneal fluid or mesenteric/ omental i nflammation. APPENDIX: Normal. PELVIS: Corpus luteum cyst in the right adnexum. There is no abnormality of the uterus or left adnex um that is apparent on CT. The urinary bladder is distended and normal in appearance. ABDOMINAL WALL: No mass or hernia. BONES: No acute findings. OTHER: No other finding. IMPRESSION: No acute intra-abdominal abnormality. TECHNICAL DOCUMENTATION: JOB ID: [id number] Quality ID # [id number]: Final reports with documentation of one or more dose reduction techniques (e.g., Au tomated exposure control, adjustment of the mA and/or kV according to patient size, use of iterative reconstruction technique) 2010 [employer]- All Rights Reserved Reading location - IP/workstation name: [email or web address]-
[2020-04-13 12:40] VITALS: BP 115/70
== END 2020-04-13 12:53 | disposition home or self-care (01) ==
LOC: ER 08:12
DX: K80.20 Calculus of gallbladder without cholecystitis without obstruction (principal); R10.11 Right upper quadrant pain; R10.811 Right upper quadrant abdominal tenderness; R11.0 Nausea; Z87.891 Personal history of nicotine dependence; Z87.442 Personal history of urinary calculi; Z87.59 Personal history of other complications of pregnancy, childbirth and the puerperium
CPT/HCPCS: 99285; 96374; 96375; 36415; 83690; 85025; 81025; 80053; 81001; 76705; 74177; J2270; J2405